=== PATIENT | female | born 1955 | race Caucasian/White ===

== ENCOUNTER → 2019-08-28 14:30 | Outpatient (BNVA) | payer OTHER, SELFPAY | PROVIDERS: Visit Provider Anesthesiology | DX: G89.29 Other chronic pain (principal); M25.551 Pain in right hip; M25.552 Pain in left hip; M54.2 Cervicalgia; M47.816 Spondylosis without myelopathy or radiculopathy, lumbar region; Z79.891 Long term (current) use of opiate analgesic | CPT/HCPCS: 99214 ==

== ENCOUNTER → 2019-10-21 13:52 | Outpatient (BNVA) | payer OTHER, SELFPAY | PROVIDERS: PCP Nurse Practitioner; Visit Provider Nurse Practitioner | DX: G89.29 Other chronic pain (principal); M25.551 Pain in right hip; M25.552 Pain in left hip; M47.816 Spondylosis without myelopathy or radiculopathy, lumbar region; M54.2 Cervicalgia; Z79.891 Long term (current) use of opiate analgesic | CPT/HCPCS: 99213; 99214 ==

== ENCOUNTER → 2019-10-26 14:10 | Outpatient (BNVA) | payer OTHER, SELFPAY | PROVIDERS: PCP Nurse Practitioner; Visit Provider Anesthesiology Pain Medicine | DX: G89.29 Other chronic pain (principal); M47.816 Spondylosis without myelopathy or radiculopathy, lumbar region | CPT/HCPCS: 64635; 64636; 77003; J1030; J2001 ==

== ENCOUNTER → 2019-11-09 09:12 | Outpatient (BNVA) | payer OTHER, SELFPAY | PROVIDERS: PCP Nurse Practitioner; Visit Provider Anesthesiology Pain Medicine | DX: G89.29 Other chronic pain (principal); M47.816 Spondylosis without myelopathy or radiculopathy, lumbar region; Z79.891 Long term (current) use of opiate analgesic | CPT/HCPCS: 64635; 64636; 77003 ==

== ENCOUNTER 2019-12-01 12:46 | Outpatient (CLI) | payer OTHER, SELFPAY ==
--- NOTE | 2019-12-01 13:00 | XR_ITS ---
WS: [id number] LATERAL CERVICAL SPINE: 3 view. Lateral radiographs are performed in upright neutral, flexion and extension to the patient's toleranc e. HISTORY: Neck pain. COMPARISON: 04/21/2014 Straightening of the normal cervical lordosis. 2 mm retrolisthesis of C2 and C3. C2 retrolisthesis in creases to 2.7 mm during extension. No significant instability. No significant change in the retrolis thesis of C3. Moderate disc space narrowing at C4-5, C5-6 and C6-7 with osteophytes. XR/XR cervical spine fl/ex [id number] IMPRESSION: 1. Mild retrolisthesis of C2 and C3 without significant instability during fle xion or extension. 2. Moderate degenerative disc space narrowing and desiccation from C4 through C7.
== END 2019-12-01 12:47 | disposition home or self-care (01) ==
LOC: RADWPI 12:53
PROVIDERS: PCP Nurse Practitioner; Visit Provider Licensed Practical Nurse
DX: M54.2 Cervicalgia (principal)
CPT/HCPCS: 72040

== ENCOUNTER 2019-12-10 09:17 | Outpatient (CLI) | payer OTHER, SELFPAY ==
--- NOTE | 2019-12-10 09:32 | MR_ITS ---
WS: [id number] MRI CERVICAL SPINE NONCONTRAST TECHNIQUE: Sagittal T1, T2 and STIR imaging. Axial T2, gradient, and fiesta imaging. CLINICAL INFORMATION: CERVICALGIA COMPARISON: MRI September 17, 2019 FINDINGS: Straightening of the normal cervical lordosis. Mild disc bulging C4-C6. C2-C3: Small central disc protrusion with slight effacement of ventral thecal sac. Mild facet arthrop athy. Spinal canal and foramen are patent. C3-C4: Small shallow central disc protrusion. Mild facet arthropathy. Spinal canal and foramen are pa tent. C4-C5: Disc osteophyte complex with mild central canal stenosis. Moderate left and no significant rig ht foraminal narrowing. Mild facet arthropathy. Mild central canal stenosis. C5-C6: Disc osteophyte complex with mild central canal stenosis. Moderate left bony foraminal narrowi ng. Right foramen is patent. Mild/moderate facet arthropathy. C6-C7: Small right pericentral protrusion. Mild central canal stenosis. Moderate to severe left and n o significant right foraminal narrowing. C7-T1: Mild left and no significant right foraminal narrowing. Spinal canal is patent Visualized brain stem structures: Normal. Prevertebral soft tissues: Normal. MR/MR cervical spin wo con* [id number] IMPRESSION: 1. Straightening of the normal cervical lordosis. Cord signal is normal. 2. Mild disc osteophyte complexes at C4-C6 with mild central canal stenosis. 3. Moderate left C4-C5 and left C5-C6 bony foraminal narrowing. Moderate to se gilles left C6-C7 bony foraminal narrowing. 4. No significant interval changes since September 17, 2019
== END 2019-12-10 09:18 | disposition home or self-care (01) ==
LOC: RADWPI 09:26
PROVIDERS: PCP Nurse Practitioner; Visit Provider Nurse Practitioner
DX: M54.2 Cervicalgia (principal); M25.78 Osteophyte, vertebrae; M48.02 Spinal stenosis, cervical region
CPT/HCPCS: 72141

== ENCOUNTER 2020-01-19 09:39 | Outpatient (CLI) | payer OTHER, SELFPAY ==
--- NOTE | 2020-01-19 09:54 | MM_ITS ---
WS: [id number] BILATERAL DIGITAL SCREENING MAMMOGRAPHY WITH CAD CLINICAL INFORMATION: SCREEN HISTORY: Screening mammogram. No current complaints. COMPARISON: September 18, 2018 TECHNIQUE: Bilateral CC and MLO views. FINDINGS: The breasts are composed of heterogeneous fibroglandular density tissue, which can limit the detectio n of small underlying mass lesions. No suspicious mass, asymmetry, calcifications, or architectural d istortion. No evidence of malignancy. Punctate calcifications. Punctate clustered calcifications left breast. MM/[id number] IMPRESSION: BI-RADS: 2-Benign FOLLOW UP: 1 Year Follow-up Recommend return to annual screening mammography.
== END 2020-01-19 09:40 | disposition home or self-care (01) ==
LOC: RADSHAW 09:45
PROVIDERS: PCP Nurse Practitioner; Visit Provider Nurse Practitioner
DX: Z12.31 Encounter for screening mammogram for malignant neoplasm of breast (principal)
CPT/HCPCS: 77067

== ENCOUNTER → 2020-01-28 13:31 | Outpatient (BNVA) | payer OTHER, SELFPAY | PROVIDERS: PCP Nurse Practitioner; Visit Provider Anesthesiology | DX: G89.29 Other chronic pain (principal); M50.020 Cervical disc disorder with myelopathy, mid-cervical region, unspecified level; M43.12 Spondylolisthesis, cervical region; M50.90 Cervical disc disorder, unspecified, unspecified cervical region; M47.816 Spondylosis without myelopathy or radiculopathy, lumbar region; Z79.891 Long term (current) use of opiate analgesic | CPT/HCPCS: 99214 ==

== ENCOUNTER → 2020-03-10 08:19 | Outpatient (BNVA) | payer OTHER, SELFPAY | PROVIDERS: PCP Nurse Practitioner; Visit Provider Anesthesiology | DX: M50.020 Cervical disc disorder with myelopathy, mid-cervical region, unspecified level (principal); M50.90 Cervical disc disorder, unspecified, unspecified cervical region; M43.12 Spondylolisthesis, cervical region; Z79.891 Long term (current) use of opiate analgesic | CPT/HCPCS: 62321; J1040 ==

== ENCOUNTER → 2020-03-16 07:51 | Outpatient (BNVA) | payer OTHER, SELFPAY | PROVIDERS: PCP Nurse Practitioner; Visit Provider Anesthesiology | DX: G89.29 Other chronic pain (principal); M50.90 Cervical disc disorder, unspecified, unspecified cervical region; M50.020 Cervical disc disorder with myelopathy, mid-cervical region, unspecified level; M43.12 Spondylolisthesis, cervical region; M47.816 Spondylosis without myelopathy or radiculopathy, lumbar region; Z79.891 Long term (current) use of opiate analgesic | CPT/HCPCS: 99214 ==

== ENCOUNTER → 2020-05-05 09:37 | Outpatient (BNVA) | payer OTHER, SELFPAY | PROVIDERS: PCP Nurse Practitioner; Visit Provider Anesthesiology | DX: G89.29 Other chronic pain (principal); M47.816 Spondylosis without myelopathy or radiculopathy, lumbar region; M50.90 Cervical disc disorder, unspecified, unspecified cervical region; M50.020 Cervical disc disorder with myelopathy, mid-cervical region, unspecified level; M43.12 Spondylolisthesis, cervical region; Z79.891 Long term (current) use of opiate analgesic | CPT/HCPCS: 99213; 99214 ==

== ENCOUNTER → 2020-05-25 13:52 | Outpatient (BNVA) | payer OTHER, SELFPAY | PROVIDERS: PCP Nurse Practitioner; Visit Provider Anesthesiology Pain Medicine | DX: G89.29 Other chronic pain (principal); M47.816 Spondylosis without myelopathy or radiculopathy, lumbar region; M54.5 Low back pain; Z79.891 Long term (current) use of opiate analgesic | CPT/HCPCS: 64635; 64636; J1030 ==

== ENCOUNTER → 2020-06-14 12:35 | Outpatient (BNVA) | payer OTHER, SELFPAY | PROVIDERS: PCP Nurse Practitioner; Visit Provider Anesthesiology Pain Medicine | DX: G89.29 Other chronic pain (principal); M47.816 Spondylosis without myelopathy or radiculopathy, lumbar region; M54.9 Dorsalgia, unspecified; Z79.891 Long term (current) use of opiate analgesic | CPT/HCPCS: 64635; 64636; J1030 ==

== ENCOUNTER → 2020-06-30 12:52 | Outpatient (BNVA) | payer OTHER, SELFPAY | PROVIDERS: PCP Nurse Practitioner; Visit Provider Anesthesiology | DX: G89.29 Other chronic pain (principal); M54.42 Lumbago with sciatica, left side; M47.816 Spondylosis without myelopathy or radiculopathy, lumbar region; M50.90 Cervical disc disorder, unspecified, unspecified cervical region; M50.020 Cervical disc disorder with myelopathy, mid-cervical region, unspecified level; M43.12 Spondylolisthesis, cervical region; Z79.891 Long term (current) use of opiate analgesic | CPT/HCPCS: 99213; 99214 ==

== ENCOUNTER → 2020-09-13 08:15 | Outpatient (BNVA) | payer OTHER, SELFPAY | PROVIDERS: PCP Nurse Practitioner; Visit Provider Anesthesiology | DX: G89.29 Other chronic pain (principal); M47.816 Spondylosis without myelopathy or radiculopathy, lumbar region; M50.90 Cervical disc disorder, unspecified, unspecified cervical region; M50.020 Cervical disc disorder with myelopathy, mid-cervical region, unspecified level; M43.12 Spondylolisthesis, cervical region; Z79.891 Long term (current) use of opiate analgesic | CPT/HCPCS: 99214 ==

== ENCOUNTER → 2020-11-10 08:05 | Outpatient (BNVA) | payer OTHER, SELFPAY | PROVIDERS: PCP Nurse Practitioner; Visit Provider Anesthesiology | DX: G89.29 Other chronic pain (principal); M47.816 Spondylosis without myelopathy or radiculopathy, lumbar region; M50.90 Cervical disc disorder, unspecified, unspecified cervical region; M50.020 Cervical disc disorder with myelopathy, mid-cervical region, unspecified level; M43.12 Spondylolisthesis, cervical region; Z79.891 Long term (current) use of opiate analgesic | CPT/HCPCS: 99214 ==

== ENCOUNTER → 2021-01-04 08:06 | Outpatient (BNVA) | payer OTHER, SELFPAY | PROVIDERS: PCP Nurse Practitioner; Visit Provider Anesthesiology | DX: G89.29 Other chronic pain (principal); M54.2 Cervicalgia; M47.816 Spondylosis without myelopathy or radiculopathy, lumbar region; Z79.891 Long term (current) use of opiate analgesic | CPT/HCPCS: 99213 ==

== ENCOUNTER 2021-02-01 10:03 | Outpatient (CLI) | payer OTHER, SELFPAY ==
--- NOTE | 2021-02-01 10:08 | MM_ITS ---
WS: [id number] Bilateral screening digital mammogram, 02/01/2021 Clinical Data: SCREENING Comparison: 01/19/2020, 09/18/2018, 08/05/2017, 12/29/2014, 06/19/2013, 05/16/2011, 06/01/2009. Findings: The breast parenchymal pattern shows fibroglandular tissue. No spiculated masses or clustered calcifi cations are seen. There are no secondary signs of carcinoma. There are scattered benign ductal calcif ications in both breasts. There are small lymph nodes in both axilla. There are bilateral mole marker s. MM/[id number] Impression: 1. Negative bilateral mammogram unchanged. 2. Recommend annual screening mammograms. BIRADS: 1-Negative FOLLOW UP: 1 Year Follow-up The CAD [employer] was used.
== END 2021-02-01 10:04 | disposition home or self-care (01) ==
LOC: RADSHAW 10:06
PROVIDERS: PCP Nurse Practitioner; Visit Provider Nurse Practitioner
DX: Z12.31 Encounter for screening mammogram for malignant neoplasm of breast (principal)
CPT/HCPCS: 77067

== ENCOUNTER → 2021-03-07 07:49 | Outpatient (BNVA) | payer OTHER, SELFPAY | PROVIDERS: PCP Nurse Practitioner; Visit Provider Anesthesiology | DX: G89.29 Other chronic pain (principal); M43.12 Spondylolisthesis, cervical region; M50.020 Cervical disc disorder with myelopathy, mid-cervical region, unspecified level; M25.551 Pain in right hip; M47.816 Spondylosis without myelopathy or radiculopathy, lumbar region; M50.90 Cervical disc disorder, unspecified, unspecified cervical region; Z87.891 Personal history of nicotine dependence; Z79.891 Long term (current) use of opiate analgesic | CPT/HCPCS: 99214 ==

== ENCOUNTER → 2021-05-02 07:52 | Outpatient (BNVA) | payer OTHER, SELFPAY | PROVIDERS: PCP Nurse Practitioner; Visit Provider Anesthesiology | DX: G89.29 Other chronic pain (principal); M50.90 Cervical disc disorder, unspecified, unspecified cervical region; M50.020 Cervical disc disorder with myelopathy, mid-cervical region, unspecified level; M43.12 Spondylolisthesis, cervical region; M47.816 Spondylosis without myelopathy or radiculopathy, lumbar region; M25.551 Pain in right hip; M25.552 Pain in left hip; Z79.891 Long term (current) use of opiate analgesic; Z87.891 Personal history of nicotine dependence | CPT/HCPCS: 99214 ==

== ENCOUNTER → 2021-05-04 09:27 | Outpatient (BNVA) | payer OTHER, SELFPAY | PROVIDERS: PCP Nurse Practitioner; Visit Provider Surgery | DX: Z20.822 Contact with and (suspected) exposure to COVID-19 (principal); Z11.52 Encounter for screening for COVID-19 | CPT/HCPCS: 87635 ==

== ENCOUNTER 2021-05-10 07:10 | Day surgery (SDC) | payer OTHER, MEDICARE, SELFPAY ==
[2021-05-05 13:14] VITALS: BMI 28.2
--- NOTE | 2021-05-10 07:56 | ANES.PREANE2 ---
Pre-Anesthetic Assessment Pre-Anesthetic Assessment: Height/Weight: Height 1.6 m Weight 79.379 kg Proposed Procedure: Operation Date: 05/10/21 08:45 Proposed Procedures p Colonoscopy 98068 z12.11(Not Applicable) - Kevan Bruce MD Was Beta Louis taken within 24 hours: N/A Was Clonidine taken within 24 hours: N/A Social: Social History: No alcohol and No tobacco Exam: Pre-Anes Outpt Exam: alert, oriented x 3, clear to auscultation bilaterally and regular rate & rhythm Airway: Submandibular: WNL Cervical ROM: WNL MP: 2 Dentition: False Musc/skel: Musc/skel: Lower Back Pain Comments: Chronic pain/opioid Anesthetic Plan: ASA status: 3 Anesthesia: MAC Risk of > 500 ml blood loss (7ml/kg in children): No PFSH Anesthesia PFSH: Medical History Cervical disc disease Cervical disc disorder with myelopathy of mid-cervical region Encounter for long-term use of opiate analgesic PTSD (post-traumatic stress disorder) Spondylolisthesis of cervical region 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 Social History (Updated 05/02/21 @ 08:41 by Jolene Colbert LPN) Smoking and tobacco status: former smoker Second hand smoke exposure: No Alcohol intake: never Adopted: Yes Household members: spouse Marital status: Current occupational status: retired and disabled History of recent travel: No Data Anesthesia Cardiac Studies: No Data to Display
[2021-05-10 08:20] VITALS: BP 140/94; PULSE 78; RESP 18; TEMP 36.3; O2SAT 96
[2021-05-10] MEDS: sodium chloride 0.9% 1,000 ML 30 ML IV (08:26)
--- NOTE | 2021-05-10 08:41 | P.HP_ITS ---
Same Day Surgery H&P Indication for Procedure/HPI DATE OF PROCEDURE: May 10, 2021 CHIEF COMPLAINT/INDICATIONFOR SURGICAL PROCEDURE: I am here for colonoscopy PREOP DIAGNOSIS: Screening colonoscopy PLANNED PROCEDRUE: Operation Date: 05/10/21 08:45 Proposed Procedures p Colonoscopy 05311 z12.11(Not Applicable) - Kevan Bruce MD 03/29/2021 This is a pleasant 65 years old female patient referred to me as she has been tested positive for the fecal immunochemical test, as she is referred today to discuss colonoscopy she does report that she does have some blood with stool every now and then. Denies history of colon cancer and she reports that she has been adopted and she does not know of she has family history of colon cancer. No evidence of weight loss 05/10/2021 Patient comes today for colonoscopy today ROS All systems have been reviewed negative except as per the above or per problem list Medications/Allergies* Home Medications Medication Instructions Recorded Confirmed Type calcitonin (salmon) 200 1 spray INTRANASAL (ALT) ONCE 08/20/19 05/10/21 History unit/actuation nasal spray calcium carbonate-vitamin D3 600 1 cap PO DAILY cap 08/20/19 05/10/21 History mg (1,500 mg)-400 unit capsule gabapentin 100 mg capsule 100 mg PO .eight times a day cap 08/20/19 05/10/21 History omega-3 fatty acids 1,000 mg 1,000 mg PO BID 08/20/19 05/10/21 History capsule synthetic conj estrogens B 0.625 0.625 mg PO DAILY tab 08/20/19 05/10/21 History mg tablet cyclobenzaprine 10 mg tablet 10 mg PO BID PRN tab 08/28/19 05/10/21 History ketoconazole 2 % topical cream 1 applic TOPICAL BID PRN 08/28/19 05/10/21 History prenat.vits,joyce,rac-jral-nyfsb 1 tab PO DAILY 10/26/19 05/10/21 History garlic 1,000 mg capsule 1,000 mg PO DAILY 11/19/19 05/10/21 History turmeric root extract 500 mg 500 mg PO DAILY 11/19/19 05/10/21 History capsule elida (Zingiber officinalis) 500 500 mg PO DAILY 12/15/19 05/10/21 History mg capsule cetirizine 10 mg tablet 10 mg PO DAILY PRN tab 05/05/20 05/10/21 History trazodone 100 mg tablet 100 mg PO DAILY 01/04/21 05/10/21 History Allergies/Adverse Reactions Allergy/AdvReac Type Severity Reaction Status Date / Time No Known Allergies Allergy Unverified 05/10/21 09:00 Current Medications: Generic Name Dose Route Start Last Admin Trade Name Freq PRN Reason Stop Dose Admin Sodium Chloride 1,000 mls @ 30 mls/hr 05/10/21 08:30 05/10/21 08:26 Sodium Chloride 0.9% IV 05/11/21 08:29 30 mls/hr .Q24H LOGAN Administration Pertinent History/Comorbid Conditions* Medical History (Updated 05/08/21 @ 15:02 by Richy Girard MD) Cervical disc disease Cervical disc disorder with myelopathy of mid-cervical region Encounter for long-term use of opiate analgesic PTSD (post-traumatic stress disorder) Spondylolisthesis of cervical region 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 Social History Smoking and tobacco status: former smoker Second hand smoke exposure: No Alcohol intake: never Adopted: Yes Household members: spouse Marital status: Current occupational status: retired and disabled History of recent travel: No Pertinent Exam Findings alert, oriented x 3, clear to auscultation bilaterally, regular rate & rhythm and procedure specific exam findings (Abdominal examination nontender nondistended soft) Recommendations Surgery/Procedure today (Colonoscopy with possible biopsy) Other Plans: Plan of care; After thorough history and physical examination and reviewing the chart, plan to perform screening colonoscopy. I discussed with the patient in details the risks,benefits,alternatives and indications.The risk of aspiration, bleeding, soft tissue injury, perforation of the colon and other potential concomitant complications were explained to the patient in details,also the potential need for Laproscoy/Laparotomy to repair any related complications including but not limited to colectomy and or Closotomy.The patient understood this well and did agree to proceed. Rationale was carefully and clearly discussed with the patient.Appropriate informed consent have been reviewed and signed All questions have been answered and all concerns have been addressed to patient's satisfaction. Verbal and written Instructions were given to the patient for colonoscopy prep Coding Level of Care Code Acute Social Work Lecturer for Ousmane Daugherty
[2021-05-10 09:23] VITALS: BP 140/70; PULSE 68; RESP 18; TEMP 36.4; O2SAT 96
[2021-05-10 09:38] VITALS: BP 110/73; PULSE 69; RESP 18; O2SAT 96
--- NOTE | 2021-05-10 14:12 | ANE.PACU2 ---
Inpatient post-anesthesia follow up: Airway intact: Yes Vital signs: Temperature 97.5 F Pulse Rate 69 Respiratory Rate 18 Blood Pressure 110/73 Pulse Oximetry 96 Oxygen Delivery Me thod Room Air Oxygen Flow Rate 3 Fraction of Inspir ed Oxygen Hydration adequate: Yes Nausea and vomiting: No Pain level: 1 Mental status: Baseline
== END 2021-05-10 10:00 | disposition home or self-care (01) ==
PROVIDERS: PCP Nurse Practitioner; Visit Provider Surgery
PROC: 0DJD8ZZ Inspection of Lower Intestinal Tract, Via Natural or Artificial Opening Endoscopic (ICD-10-PCS; CPT 45378; principal; 2021-05-10 08:45)
DX: Z12.11 Encounter for screening for malignant neoplasm of colon (principal); D12.8 Benign neoplasm of rectum; Z87.891 Personal history of nicotine dependence
CPT/HCPCS: 45380; 88305; 96360; J2704; J7030

== ENCOUNTER 2021-06-13 14:00 | Inpatient (IN) | payer OTHER, SELFPAY ==
[2021-06-13 14:12] VITALS: BP 92/64; PULSE 98; RESP 18; TEMP 37.4; O2SAT 94; BMI 28.8
--- NOTE | 2021-06-13 14:20 | ECG_ITS ---
[facility] Test Date: 2021-06-13 Pat Name: Guadalupe Garrett Department: Room: Gender: Female Customer Marketing Intern: : 1955 Requested By: Dmitry Whalen Order Number: [id number] Reading MD: RADHA BRADFORD Measurements Intervals [place] Rate: 94 P: 63 UT: 144 QRS: 79 QRSD: 93 T: 61 QT: 349 QTc: 437 Interpretive Statements SINUS RHYTHM INDETERMINATE AXIS INCOMPLETE RIGHT BUNDLE BRANCH BLOCK [90+ ms QRS DURATION, TERMINAL R IN V1/V2, 40+ ms S IN I/aVL/V4/V5/V6] No previous ECG available for comparison Electronically Signed On 06-13-2021 22:57:40 CDT by RADHA BRADFORD [id number]
[2021-06-13 15:03] LABS: Basophils % 0.2 %; Eosinophils # 0.2 10^3/uL (0.0-0.8); Eosinophils % 3.7 %; Hemoglobin 15.3 g/dL (11.5-15.3); Lymphocytes # 0.6 10^3/uL (0.8-4.8); Lymphocytes % 9.9 %; Mean Corpuscular HGB Conc 34.8 g/dL (30.0-36.0); Mean Corpuscular Hemoglobin 29.3 pg (28.0-34.0); Mean Corpuscular Volume 84.1 fl (81-99); Mean Platelet Volume 10.1 fL (7.4-10.4); Monocytes # 0.2 10^3/uL (0.2-0.9); Monocytes % 3.1 %; Neutrophils # 4.62 10^3/uL (1.8-7.7); Neutrophils % 80.3 %; Nucleated Red Blood Cells % 0 %; Platelet Count 165 10^3/cmm (130-400); Red Blood Count 5.23 10^6/uL (4.1-5.3); Red Cell Distribution Width 13.2 % (12.1-15.1); White Blood Count 5.8 10^3/uL (4.0-10.0)
[2021-06-13 15:25] LABS: Troponin T (5th) Once 10 ng/L (0-10)
[2021-06-13 16:16] LABS: Alanine Aminotransferase 144 U/L (0-33); Albumin Level 3.7 g/dL (3.5-5.2); Alkaline Phosphatase 61 IU/L (35-105); Anion Gap 21.2 (5-19); Aspartate Amino Transferase 370 U/L (0-32); Blood Urea Nitrogen 22 mg/dL (8-23); Calcium 8.3 mg/dL (8.5-10.5); Carbon Dioxide 24 mmol/L (22-29); Chloride 87 mmol/L (98-107); Globulin 2.9 g/dL (1.3-4.6); Glucose 87 mg/dL (65-115); Lipase 47 U/L (13-60); Osmolality Calculated 271 mOsm/kg (285-295); Potassium 3.2 mmol/L (3.5-5.1); Sodium 129 mmol/L (136-145); Total Bilirubin 0.4 mg/dL (0.15-1.2); Total Protein 6.6 g/dL (6.6-8.7)
[2021-06-13 17:01] VITALS: BP 128/72; PULSE 86; RESP 17; O2SAT 94
--- NOTE | 2021-06-13 17:16 | CTR_ITS ---
PROCEDURE INFORMATION: Exam: CT Head Without Contrast Exam date and time: 06/13/2021 5:16 PM Age: 66 years old Clinical indication: Weakness, extremity; Bilateral; Additional info: Weakness legs TECHNIQUE: Imaging protocol: Computed tomography of the head without contrast. Sagittal and coronal reformatted images were created and reviewed. Radiation optimization: All CT scans at this facility use at least one of these dose optimization techniques: automated exposure control; mA and/or kV adjustment per patient size (includes targeted exams where dose is matched to clinical indication); or iterative reconstruction. COMPARISON: No relevant prior studies available. RADIATION DOSE METRICS: Total DLP (mGy-cm): 835.77 FINDINGS: Brain: No acute intracranial hemorrhage. No acute infarct. No intra-axial or extra-axial masses. Del[place]-white matter differentiation is preserved. No cerebral edema. No extra-axial fluid collections. No midline shift. No evidence for Chiari 1 malformation. Cerebral ventricles: No hydrocephalus. Paranasal sinuses: Mild mucoperiosteal thickening in the posterior right ethmoid sinuses. Other visualized paranasal sinuses are clear. Mastoid air cells: Visualized mastoid air cells are clear. Orbital cavity: No acute abnormality in the visualized orbits. Vasculature: Atherosclerotic changes in the visualized arteries. Bones/joints: No acute fracture. Soft tissues: The extracranial soft tissues are unremarkable. CT/CT head wo con* [id number] IMPRESSION: 1. No acute abnormality of the brain. 2. Mild mucoperiosteal thickening in the posterior right ethmoid sinuses. 3. Incidental/nonacute findings are listed in the report. Radiation Dose CTDIVOL = (mGy): DLP = 835.77 (mGy-cm)
--- NOTE | 2021-06-13 17:17 | ED_ITS ---
HPI - Neuro Symptoms/Deficit General: Chief Complaint: Neuro Symptoms/Deficit Stated Complaint: nausea and vomitting Time Seen by Provider: 06/13/21 17:04 History of Present Illness: HPI Narrative: 66-year-old female presents emergency room with complaint of weakness bilateral legs feels like she cannot walk. She denies any dizziness or lightheadedness. States last week she was seen by her primary care doctor and started on Bactrim for a UTI. She not had any chest pain or tightness. Patient is nondiabetic she takes a large number of nutritional supplements. Onset (ago): day(s) Quality: weak Relieving factors: none Exacerbating factors: none On Anticoagulants: No Associated symptoms: Reports weakness; Deny chest pain, cough, diaphoresis, fevers/chills, headache(s), anorexia, malaise, nausea, seizures, short of breath, syncope, tingling, vertigo or vomiting Treatments Prior to Arrival: none Review of Systems Const: Denies: malaise or diaphoresis ENMT: Denies: throat pain, ear or mastoid pain, nasal discharge or nasal congestion Card: Denies: chest pain or syncope Resp: Denies: dyspnea, productive cough or non-productive cough GI: Denies: nausea or vomiting : Denies: flank pain, difficulty voiding, dysuria, urinary frequency or urinary urgency Skin/Breast: Denies: rash or pruritus Neuro: Denies: headache(s) or vertigo PFS ED PFSH: Medical History (Updated 06/14/21 @ 14:53 by Bharath Rosenbaum DO) Cervical disc disease Cervical disc disorder with myelopathy of mid-cervical region Colon polyp Encounter for long-term use of opiate analgesic PTSD (post-traumatic stress disorder) Spondylolisthesis of cervical region 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 Social History (Reviewed 06/14/21 @ 05:50 by CONSTANTINO Delvalle Smoking and tobacco status: former smoker Second hand smoke exposure: No Alcohol intake: never Adopted: Yes Household members: spouse Marital status: Current occupational status: retired and disabled History of recent travel: No NIH stroke score NIHSS: Level Of Consciousness - 1a: 0 Level Of Consciousness Questions - 1b: Both Correct Level Of Consciousness Commands - 1c: Both Correct Best Gaze - 2: Normal Visual Valles - 3: No Visual Loss Facial Palsy - 4: Normal Motor Arm Right - 5: No Drift Motor Arm Left - 5: No Drift Motor Leg Right - 6: No Drift Motor Leg Left - 6: No Drift Limb Ataxia - 7: Absent Sensory - 8: Normal Best Language - 9: No Aphasia Dysarthia - 10: Normal Extinction And Inattention - 11: 0 Score: Total Score: 0 Physical Exam Const: COMMON NORMALS: no acute distress GENERAL APPEARANCE: cooperative and comfortable ORIENTATION/CONSCIOUSNESS: Yes awake, Yes oriented to person, Yes oriented to place and Yes oriented to time HENMT: COMMON NORMALS: normocephalic, atraumatic and hearing grossly normal bilaterally HEAD & SCALP: normocephalic and atraumatic Eye: COMMON NORMALS: Equal, round and reactive pupils present, EOMs intact bilaterally, conjunctivae normal and no scleral icterus CONJUNCTIVA: Yes conjunctivae normal PUPIL: Yes Equal, round and reactive pupils present Neck/C-Spine: COMMON NORMALS: full ROM, no lymphadenopathy, supple and no JVD Lymph: LYMPHATIC: no lymphadenopathy noted and no lymphedema noted Resp: COMMON NORMALS: normal respiratory effort, No retractions, No use of accessory muscles and clear to auscultation bilaterally AUSCULTATION: clear to auscultation bilaterally Cardio: COMMON NORMALS: no JVD, regular rate, regular rhythm and No murmurs present (Cardio) RATE: regular rate RHYTHM: regular rhythm GI: COMMON NORMALS: Soft to palpation and No hepatosplenomegaly present AUSCULTATION: Yes normoactive bowel sounds PALPATION: Yes Soft to palpation, No Tenderness to palpation present (GI), No Guarding due to palpation present (GI) and Yes No hepatosplenomegaly present Extremity: COMMON NORMALS: normal to inspection, capillary refill normal, no clubbing, cyanosis or edema, no calf tenderness and no pedal edema Neuro: SENSORIUM/ORIENTATION: Yes oriented to person, Yes oriented to place and Yes oriented to time COORDINATION/BALANCE: [id number]-md-[id number] test normal DEEP TENDON REFLEXES: Right patellar reflex intensity grade: 0 and Left patellar reflex intensity grade: 0 PLANTAR REFLEX: downgoing: bilateral COORDINATION: irct-sk-[id number] test normal Skin: COMMON NORMALS: no rashes or lesions noted GENERAL SKIN EXAM: no rashes or lesions noted Course Vital Signs: Vital signs: Vital Signs Temperature 98.3 F 06/14/21 11:37 Pulse Rate 80 06/14/21 11:37 Respiratory Rate 17 06/14/21 11:37 Blood Pressure 103/65 06/14/21 11:37 Pulse Oximetry 97 06/14/21 11:37 MDM - Neuro Symptoms/Deficit MDM Narrative: Medical decision making narrative: We are going to discharge patient we went to have her walk she performed extremely poorly even with the assist of 1 she required the wall for any ambulation ambulated about 10 feet from the door of her exam room and had to lean against the wall to turn. She is significantly hyponatremic. Additionally she did have a mild UTI. Concerned about the proximal weakness and the ataxia that she has. We will go ahead and admit her. Discussed with the hospitalist. Lab Data: Labs: Lab Results 06/13/21 06/13/21 06/13/21 14:59 14:59 14:59 WBC 5.8 10^3/uL 10^3/ uL (4.0-10.0) RBC 5.23 10^6/uL 10^6 /uL (4.1-5.3) Hgb 15.3 g/dL g/dL (11.5-15.3) Hct 44.0 % % (37.0-47.0) MCV 84.1 fl fl (81-99) MCH 29.3 pg pg (28.0-34.0) MCHC 34.8 g/dL g/dL (30.0-36.0) RDW 13.2 % % (12.1-15.1) Plt Count 165 10^3/cmm 10^3 /cmm (130-400) MPV 10.1 fL fL (7.4-10.4) Neut % (Auto) 80.3 % % Lymph % (Auto) 9.9 % % [place] % (Auto) 3.1 % % Eos % (Auto) 3.7 % % Baso % (Auto) 0.2 % % Neut # (Auto) 4.62 10^3/uL 10^3 /uL (1.8-7.7) Lymph # (Auto) 0.6 10^3/uL L 10^ 3/uL (0.8-4.8) [place] # (Auto) 0.2 10^3/uL 10^3/ uL (0.2-0.9) Eos # (Auto) 0.2 10^3/uL 10^3/ uL (0.0-0.8) Baso # (Auto) 0.0 10^3/uL 10^3/ uL (0.0-0.1) Nucleated RBC % (a uto) 0 % % Nucleated RBCs # 0.0 /100WBC /100W BC Sodium 129 mmol/L L mmol /L (136-145) Potassium 3.2 mmol/L L mmol /L (3.5-5.1) Chloride 87 mmol/L L mmol/ L (98-107) Carbon Dioxide 24 mmol/L mmol/L (22-29) Anion Gap 21.2 H (5-19) BUN 22 mg/dL mg/dL (8-23) Creatinine 1.3 mg/dL H mg/dL (0.5-0.9) GFR Calculation 41.0 mL/min L mL/ min (90-130) Glucose 87 mg/dL mg/dL (65-115) Calculated Osmolal ity 271 mOsm/kg L mOs m/kg (285-295) Calcium 8.3 mg/dL L mg/dL (8.5-10.5) Total Bilirubin 0.4 mg/dL mg/dL (0.15-1.2) AST 370 U/L H U/L (0-32) ALT 144 U/L H U/L (0-33) Alkaline Phosphata se 61 IU/L IU/L (35-105) Troponin T Gen 5 n g/L 10 ng/L ng/L (0-10) Total Protein 6.6 g/dL g/dL (6.6-8.7) Albumin 3.7 g/dL g/dL (3.5-5.2) Globulin 2.9 g/dL g/dL (1.3-4.6) Lipase 47 U/L U/L (13-60) Urine Color Urine Appearance Urine pH Ur Specific Gravit y Urine Protein Urine Glucose (UA) Urine Ketones Urine Blood Urine Nitrate Urine Bilirubin Urine Urobilinogen Ur Leukocyte Leidy ase Urine RBC Urine WBC Ur Squamous Epith Cells Amorphous Sediment Urine Bacteria Hyaline Casts Coarse Granular Ca sts Urine Mucus Ur Random Sodium Ur Random Potassiu m Ur Random Chloride 06/13/21 06/13/21 18:00 18:00 WBC RBC Hgb Hct MCV MCH MCHC RDW Plt Count MPV Neut % (Auto) Lymph % (Auto) [place] % (Auto) Eos % (Auto) Baso % (Auto) Neut # (Auto) Lymph # (Auto) [place] # (Auto) Eos # (Auto) Baso # (Auto) Nucleated RBC % (a uto) Nucleated RBCs # Sodium Potassium Chloride Carbon Dioxide Anion Gap BUN Creatinine GFR Calculation Glucose Calculated Osmolal ity Calcium Total Bilirubin AST ALT Alkaline Phosphata se Troponin T Gen 5 n g/L Total Protein Albumin Globulin Lipase Urine Color Yellow (Yellow) Urine Appearance Hazy A (CLEAR) Urine pH 5 (5-7) Ur Specific Gravit y 1.020 (1.005-1.030) Urine Protein Trace (Negative) Urine Glucose (UA) Norm (Normal) Urine Ketones 1+ H (Negative) Urine Blood 3+ H (Negative) Urine Nitrate Negative (Negative) Urine Bilirubin 1+ H (Negative) Urine Urobilinogen 1 mg/dL H mg/dL (Negative) Ur Leukocyte Leidy ase Negative (Negative) Urine RBC 0-4 /hpf H /hpf (0-2) Urine WBC 0-4 /hpf H /hpf (0-5) Ur Squamous Epith Cells 0-4 /hpf H /hpf (0-5) Amorphous Sediment Trace /hpf /hpf Urine Bacteria 1+ /hpf H /hpf (NONE) Hyaline Casts 0-4 /lpf H /lpf Coarse Granular Ca sts 0-4 /lpf H /lpf Urine Mucus 2+ /hpf /hpf Ur Random Sodium 25 mmol/L mmol/L Ur Random Potassiu m 32 mmol/L mmol/L Ur Random Chloride 11 mmol/L mmol/L Discharge Plan Discharge Patient Disposition: Home Clinical Impression: Weakness, Elevated transaminase level, UTI (urinary tract infection), Hyponatremia Condition: Stable Discharge Orders: Discharge ED (Routine); Ordered 06/13/21 Ordered By: Bharath L Horstman Discharge Diet: Clear Liquid Discharge Activity: Resume usual activity Coding Level of Care Code ED Visitor Services Assistant for Chg Fwd Exam Comprehensive
[2021-06-13 18:04] VITALS: BP 141/81; PULSE 99; RESP 18; O2SAT 98
[2021-06-13 18:57] LABS: Add Urine Microscopic? YES; Bilirubin Urine 1+ (Negative); Blood Urine 3+ (Negative); Glucose Urine UA Norm (Normal); Ketones Urine 1+ (Negative); Leukocyte Esterase Urine Negative (Negative); Nitrate Urine Negative (Negative); Protein Urine Trace (Negative); Urine Appearance Hazy (CLEAR); Urine Color Yellow (Yellow); Urobilinogen Urine 1 mg/dL (Negative); pH Urine 5 (5-7)
[2021-06-13 18:58] LABS: Add Urine Culture? No; Amorphous Sediment Urine TRACE /hpf; Bacteria Urine 1+ /hpf; Coarse Granular Casts Urine 0-4 /lpf; Hyaline Casts Urine 0-4 /lpf; Mucus Urine 2+ /hpf; RBC Urine 0-4 /hpf (0-2); Squamous Epithelial Cell Urine 0-4 /hpf (0-5); WBC Urine 0-4 /hpf (0-5)
[2021-06-13 19:52] VITALS: BMI 27.4
[2021-06-13] MEDS: sodium chloride 0.9% 1,000 ML 999 ML IV (19:58)
[2021-06-13 20:39] VITALS: BP 132/69; PULSE 90; RESP 18; TEMP 36.6; O2SAT 97
[2021-06-13] MEDS: sodium chloride 0.9% 1,000 ML 150 ML IV (21:09)
[2021-06-14] VITALS (7 sets, daily range): BP systolic 94–124; BP diastolic 59–67; PULSE 80–87; RESP 16–18; TEMP 36.6–38.4; O2SAT 90–97
--- NOTE | 2021-06-14 01:18 | XRR_ITS ---
PROCEDURE INFORMATION: Exam: XR Chest Exam date and time: 06/14/2021 1:18 AM Age: 66 years old Clinical indication: Fever TECHNIQUE: Imaging protocol: XR of the chest. Views: 1 view. COMPARISON: CR Chest 2 views* [id number] 06/19/2016 6:19 PM FINDINGS: Lungs: Unremarkable. No consolidation. Pleural spaces: Unremarkable. No pleural effusion. No pneumothorax. Heart/Mediastinum: Unremarkable. No cardiomegaly. Bones/joints: Unremarkable. XR/XR chest 1V portable [id number] IMPRESSION: No acute disease. Radiation Dose CTDIVOL = (mGy): DLP = (mGy-cm)
--- NOTE | 2021-06-14 01:32 | CTR_ITS ---
PROCEDURE INFORMATION: Exam: CT Abdomen And Pelvis Without Contrast Exam date and time: 06/14/2021 1:32 AM Age: 66 years old Clinical indication: Prior surgery; Surgery type: Hysterectomy. Appy; Patient HX: Hematuria. Elevated creatinine. ; Additional info: Evalute for obstruction/hydronephrosis TECHNIQUE: Imaging protocol: Computed tomography of the abdomen and pelvis without contrast. Radiation optimization: All CT scans at this facility use at least one of these dose optimization techniques: automated exposure control; mA and/or kV adjustment per patient size (includes targeted exams where dose is matched to clinical indication); or iterative reconstruction. COMPARISON: CR Pelvis AP 1 or 2 views* [id number] 06/19/2016 6:24 PM RADIATION DOSE METRICS: Total DLP (mGy-cm): 1327.31 FINDINGS: Lungs: The lung bases are clear. No effusion Liver: There is fatty infiltration of the liver. Gallbladder and bile ducts: No wall thickening, pericholecystic fluid or stones. Pancreas: Normal. No ductal dilation. Spleen: Normal. No splenomegaly. Adrenal glands: Normal. No mass. Kidneys and ureters: 4 mm nonobstructing left renal pelvis stone. Stomach and bowel: Unremarkable. No obstruction. No mucosal thickening. Appendix: Appendix has been removed. Intraperitoneal space: Unremarkable. No free air. No significant fluid collection. Vasculature: There is mild atherosclerotic disease. Lymph nodes: Unremarkable. No enlarged lymph nodes. Urinary bladder: Unremarkable as visualized. Reproductive: There has been a hysterectomy. Bones/joints: Severe intervertebral disc space narrowing at L4-L5 Soft tissues: Unremarkable. Other findings: Complex septated cystic structure in the pelvis which measures approximately 9.9 x 9.[address]/CT kidney stone [id number] IMPRESSION: 1. Complex septated adnexal cystic structure which measures approximately 9.9 x 9.4 by 7.6 cm. Further evaluation with prompt non-emergent ultrasound or prompt non-emergent MRI is recommended to characterize. (Reference: Camilo) 2. Fatty infiltration of the liver. 3. 4 mm nonobstructing left renal pelvis stone. REFERENCES: Camilo et al. Management of Incidental Adnexal Findings on CT and MRI: A White Paper of the ACR Incidental Findings Committee, J Am Meagan Radiol. 2019;17(2):248-254. Radiation Dose CTDIVOL = (mGy): DLP = 1327.31 (mGy-cm)
--- NOTE | 2021-06-14 01:33 | PM.HP ---
Providers/Chief Complaint Admitting Physician: Casper Mayes MD Primary Care Provider: PA Sahu Chief Complaint: Nausea, vomiting, trouble walking, rash History of Present Illness Guadalupe Garrett is a 66 year old female that presented to the emergency room today with chief complaint of increasing generalized weakness over the past week. Patient states that she was diagnosed with an atypical UTI by her primary care provider at [place] about a week ago and has been on Bactrim twice a day. However over the past week she has continued to experience increased generalized weakness, low-grade fever, has had difficulty walking. At the baseline she states she is independent in ambulation, however has felt more unsteady on her feet over the past week. At the time of my assessment patient is alert and awake, however is slow to respond to questions. I am uncertain if this is her baseline. She has also maculopapular rash noted over bilateral arms face and upper chest which she states appeared since she started Bactrim. She denies any dysuria at this current time. She complains of some abdominal discomfort particularly in the lower abdomen.Nausea+, no vomiting. Denies diarrhea or constipation. Labs today are notable for hyponatremia with sodium of 129, hypokalemia potassium 3.2, elevated AST and ALT 300 and 100 range respectively with normal alkaline phosphatase and T bili. There is no leukocytosis. Creatinine at 1.3, unknown last baseline. UA is noted to be hazy, with 0-4 WBCs, 1+ bacteria, negative nitrate and leukoesterase. She is immunized with 2 dose borderline mRNA vaccine series for COVID-19. Rapid Covid antigen is negative. Review of Systems General: Reports: 10 or more systems reviewed and unremarkable except in HPI and below Const: Denies: fever(s), chills or body aches Eyes: Denies: change in vision, blurry vision or photophobia ENMT: Reports: hoarseness; Denies: throat pain, enlarged tonsils, odynophagia or nasal congestion Card: Denies: chest pain, palpitations, irregular heart rhythm, edema, swelling of feet/ankles, lightheadedness, pre-syncope, dyspnea on exertion or orthopnea Resp: Denies: dyspnea, productive cough, non-productive cough, wheezing, stridor, pain on inspiration, change in phlegm color, hemoptysis or chest congestion GI: Denies: abdominal pain, nausea, vomiting, hematemesis, coffee ground emesis, dysphagia, heartburn, diarrhea, constipation, GI cramping, change in stool character, hematochezia or melena : Denies: flank pain, difficulty voiding, dysuria, urinary frequency, urinary urgency, urinary hesitancy or hematuria Musc: Denies: neck pain, back pain, extremity pain, joint swelling, joint warmth or deformity Neuro: Denies: headache(s), numbness in extremities, weakness in extremities, sensory changes, difficulty walking, frequent falls, dizziness, vertigo, behavioral changes, Slurred speech present or seizure-like activity Psych: Denies: anxiety, depression, suicidal ideation or homicidal ideation Endo: Denies: polyuria, polydipsia, tired all the time, cold intolerance or hot flashes Prudencio/Lymph: Denies: easy bruising or easy bleeding Medications/Allergies Home Medications Medication Instructions Recorded Confirmed Last Taken Type calcitonin (salmon) 200 1 spray INTRANASAL (ALT) ONCE 08/20/19 06/13/21 06/12/21 History unit/actuation nasal spray calcium carbonate-vitamin D3 600 1 cap PO DAILY cap 08/20/19 06/13/21 06/13/21 History mg (1,500 mg)-400 unit capsule gabapentin 100 mg capsule 100 mg PO .eight times a day cap 08/20/19 06/13/21 06/13/21 History omega-3 fatty acids 1,000 mg 1,000 mg PO BID 08/20/19 06/13/21 06/13/21 History capsule synthetic conj estrogens B 0.625 0.625 mg PO DAILY tab 08/20/19 06/13/21 06/13/21 History mg tablet cyclobenzaprine 10 mg tablet 10 mg PO BID PRN tab 08/28/19 06/13/21 Unknown History ketoconazole 2 % topical cream 1 applic TOPICAL BID PRN 08/28/19 06/13/21 05/09/21 History prenat.vits,joyce,[id number] 1 tab PO DAILY 10/26/19 06/13/21 06/13/21 History garlic 1,000 mg capsule 1,000 mg PO DAILY 11/19/19 06/13/21 05/09/21 History turmeric root extract 500 mg 500 mg PO DAILY 11/19/19 06/13/21 06/13/21 History capsule elida (Zingiber officinalis) 500 500 mg PO DAILY 12/15/19 06/13/21 06/13/21 History mg capsule cetirizine 10 mg tablet 10 mg PO DAILY PRN tab 05/05/20 06/13/21 06/13/21 History trazodone 100 mg tablet 100 mg PO DAILY 01/04/21 06/13/21 06/13/21 History hydrocodone 5 mg-acetaminophen 325 1 tab PO BID PRN 30 Days #60 tab 05/02/21 06/13/21 06/13/21 Rx mg tablet Allergies Allergy/AdvReac Type Severity Reaction Status Date / Time Sulfa (Sulfonamide Allergy ALGY-Rash Verified 06/13/21 20:47 Antibiotics) PFSH Acute PFSH: Medical History (Updated 06/14/21 @ 05:53 by Ratna Vidal MD) Cervical disc disease Cervical disc disorder with myelopathy of mid-cervical region Colon polyp Encounter for long-term use of opiate analgesic PTSD (post-traumatic stress disorder) Spondylolisthesis of cervical region 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 Social History Smoking and tobacco status: former smoker Second hand smoke exposure: No Alcohol intake: never Adopted: Yes Household members: spouse Marital status: Current occupational status: retired and disabled History of recent travel: No Vitals/I&O/Wt Last Vital Signs Temp 98.1 F 06/14/21 00:00 Pulse 86 06/14/21 00:00 Resp 18 06/14/21 00:00 BP 124/59 06/14/21 00:00 Pulse Ox 95 06/14/21 00:00 06/13/21 06/13/21 06/14/21 14:59 22:59 06:59 Intake Total 1000 / 1000 Balance 1000 / 1000 Weight last 48 hrs Weight 77.111 kg Weight 81.193 kg Physical Exam Narrative: EXAM NARRATIVE: General: No acute distress, AO x3 HEENT: PERRLA, pupils bilaterally equal and reactive, pallors not present Chest: Normal vesicular breath sounds, no added sounds, equal good air entry bilaterally CVS: S1-S2 regular, no murmurs, no tachycardia, no gallops, no rubs Abdomen: Soft, nontender, no organomegaly, bowel sounds present Neuro: No focal deficits, no facial deformity, AO x3, power 5/5 in all limbs Extremities: Healthy surgical dressing present on the right hip, mild tenderness, soft no erythema. Data : 06/13/21 14:59 06/14/21 04:30 A&P Assessment and plan (1) UTI (urinary tract infection): Status: Acute (2) Weakness: Status: Acute (3) Elevated transaminase level: Status: Acute (4) Hyponatremia: Status: Acute (5) JOHN (acute kidney injury): Status: Acute Additional A&P Information Patient on treatment for urinary tract infection over the past week as outpatient with Bactrim presenting today with increasing generalized weakness, subjective fever, abdominal pain, transaminitis and hyponatremia with JOHN. #UTI, obtain urine culture from primary care physician's office, send additional urine culture today. UA as noted above in HPI, negative for leuk esterase or nitrate, however patient has been on treatment the past week. Patient initially complained to me about having atypical UTI , however unable to clearly state what urinary symptoms she had been experiencing exactly. For now we will empirically start her on ceftriaxone 1 g IV every 24 while awaiting urine culture results. Given also JOHN with creatinine of 1.3 and abdominal pain, will perform CT of the abdomen to rule out obstructive uropathy. No flank tenderness at this time, however patient complains of discomfort to palpation over the abdomen. #Hyponatremia, low serum osmolality. Check urine lites. May be related to SIADH from Bactrim. Fluid restriction for now. Repeat sodium with morning labs, if no improvement will start p.o. salt tablet supplementation. Patient does not appear to be dehydrated at this time. Discontinue supplemental IV fluids as started in the ER. #Increasing generalized weakness over the past week may be related to deconditioning from acute illnesses. Hyponatremia may additionally be contributing. No gross neuro deficits noted on exam today. Did not perform a gait exam as patient currently lying in bed and requesting to sleep due to late hour. However moves all extremities against gravity and against resistance while laying in bed. Check blood culture, Covid antigen, urine culture. Chest x-ray without gross infiltrates. CT abdomen as ordered above. PT eval. denies any urinary or bowel incontinence or saddle anesthesia. #Transaminitis, check hepatitis serology, tick panel (given also presence of a maculopapular rash), empirically started on ceftriaxone # rash, may be 2/2 Bactrim, reports previous rash with sulfa drugs , check tick panel Attestations Medical Necessity Statement*: anticipate >2 midnight admission for above defined care Coding Level of Care Code Acute Life Consultant for [facility] Fwd Diagnoses UTI (urinary tract infection) N39.0 Weakness R53.1 Elevated transaminase level R74.01 Hyponatremia E87.1 JOHN (acute kidney injury) N17.9
[2021-06-14 02:13] LABS: Potassium, Radom Urine 32 mmol/L; Urine Random Sodium 25 mmol/L
[2021-06-14 02:14] LABS: Urine Random Chloride 11 mmol/L
[2021-06-14 02:41] LABS: SARS Covid-2 Antigen Negative (Negative)
[2021-06-14] MEDS: cefTRIAXone 1,000 MG in sodium chloride 0.9% (plus) 50 ML 100 MG IV (02:41)
[2021-06-14 05:15] LABS: Basophils % 0.2 %; Eosinophils # 0.2 10^3/uL (0.0-0.8); Eosinophils % 3.8 %; Hematocrit 38.4 % (37.0-47.0); Lymphocytes # 0.9 10^3/uL (0.8-4.8); Mean Corpuscular HGB Conc 33.9 g/dL (30.0-36.0); Mean Corpuscular Hemoglobin 29.1 pg (28.0-34.0); Mean Corpuscular Volume 85.9 fl (81-99); Mean Platelet Volume 10.4 fL (7.4-10.4); Monocytes # 0.1 10^3/uL (0.2-0.9); Monocytes % 3.1 %; Neutrophils # 2.98 10^3/uL (1.8-7.7); Neutrophils % 71.2 %; Nucleated Red Blood Cells % 0 %; Platelet Count 133 10^3/cmm (130-400); Red Blood Count 4.47 10^6/uL (4.1-5.3); Red Cell Distribution Width 13.3 % (12.1-15.1); White Blood Count 4.2 10^3/uL (4.0-10.0)
[2021-06-14 05:31] LABS: Lactic Sepsis W/Reflex 0.9 mmol/L (0.5-2.2)
[2021-06-14 05:38] LABS: Alanine Aminotransferase 116 U/L (0-33); Alkaline Phosphatase 47 IU/L (35-105); Anion Gap 15.2 (5-19); Aspartate Amino Transferase 292 U/L (0-32); Blood Urea Nitrogen 15 mg/dL (8-23); Calcium 7.6 mg/dL (8.5-10.5); Carbon Dioxide 24 mmol/L (22-29); Chloride 92 mmol/L (98-107); Globulin 2.6 g/dL (1.3-4.6); Glomerular Filtration Rate 62.6 mL/min (90-130); Glucose 91 mg/dL (65-115); Osmolality Calculated 266 mOsm/kg (285-295); Potassium 3.2 mmol/L (3.5-5.1); Sodium 128 mmol/L (136-145); Thyroid Stimulating Hormone 0.43 uIU/mL (0.27-4.20); Total Bilirubin 0.3 mg/dL (0.15-1.2); Total Protein 5.6 g/dL (6.6-8.7)
[2021-06-14 05:52] LABS: Hepatitis A Antibody IgM Non-Reactive (Nonreactive); Hepatitis B Core AB, Total Reactive (Nonreactive); Hepatitis B Surface AB 7.5 (11.5-1000); Hepatitis B Surface Antigen Non-Reactive (Nonreactive); Hepatitis C Virus Antibody Non-Reactive (Nonreactive)
[2021-06-14] MEDS: lidocaine 1% 5 ML in potassium chloride premix 100 ML 25 ML IV (06:23)
[2021-06-14] MEDS: nystatin 100,000 unit/mL UDC 5 mL 100000 UNIT PO ×2 (07:46→20:14)
[2021-06-14] MEDS: pantoprazole DR 40 mg Tablet PO (07:47)
[2021-06-14] MEDS: sodium chloride 1 gm Tablet PO ×2 (07:47→16:50)
[2021-06-14] MEDS: HYDROcodone-acetaminophen 5-325 mg Tablet 1 TAB PO ×2 (07:53→21:00)
--- NOTE | 2021-06-14 08:07 | US_ITS ---
WS: [id number] ULTRASOUND PELVIS TECHNIQUE: Transabdominal. CLINICAL INFORMATION: Complex septated cystic structure in the pelvis COMPARISON: CT June 14, 2021 FINDINGS: Complex lobulated cystic mass in the midline pelvis extending to the left adnexa. This jimmy ures approximately 9.8 x 10.5 x 7.4 cm and corresponds to the findings on the recent CT. A few audit practice intern al septations. No internal vascularity. Right adnexa is unremarkable. US/US pelvic complete* [id number] IMPRESSION: 1. Complex lobulated cystic mass in the midline pelvis extending to the left a dnexa measuring 9.8 x 10.5 x 7.4 cm. 2. Differential Considerations include serous or mucinous cystadenoma/carcinom a. Recommend PRIMARY THERAPIST consultation for further evaluation and consideration for rese ction.
[2021-06-14 09:57] LABS: Vitamin B12 835 pg/mL (232-1245)
[2021-06-14] MEDS: sodium chloride 0.9% 1,000 ML 50 ML IV (10:10)
--- NOTE | 2021-06-14 17:11 | P.PN_ITS ---
Subjective Subjective: Interval history: Patient is stating that she has been having recurrent episodes of nausea and vomiting at home since Saturday, she has not taken any antibiotics recently, no fever Vitals/I&O/Wt Last Vital Signs Temp 98.8 F 06/14/21 16:00 Pulse 84 06/14/21 16:00 Resp 16 06/14/21 16:00 BP 102/67 06/14/21 16:00 Pulse Ox 91 06/14/21 16:00 06/14/21 06/14/21 06/14/21 06:59 14:59 22:59 Intake Total 1040 / 2040 300 / 300 Output Total 300 / 300 500 / 500 Balance 740 / 1740 300 / 300 -500 / -200 Weight last 48 hrs Weight 77.111 kg Weight 81.193 kg Physical Exam Narrative: EXAM NARRATIVE: Patient was lying comfortably nonfocal neuro exam She did work with physical therapy no acute respiratory distress saturating well on room air Used a walker, no recurrent falls S1, S2 Nontender soft abdomen Nonfocal neuro exam No joint swelling Multiple macular rash of the upper and lower extremities however seems to be improving Data : 06/14/21 04:30 06/14/21 04:30 Micro: Microbiology 06/14/21 04:30 Blood Culture - Preliminary Blood SPECIMEN COLLECTED A&P Assessment and plan (1) JOHN (acute kidney injury): Status: Acute (2) Hyponatremia: Status: Acute (3) UTI (urinary tract infection): Status: Acute (4) Weakness: Status: Acute (5) Elevated transaminase level: Status: Acute (6) Lichen sclerosus of vulva: Status: Acute (7) Pelvic mass: Status: Acute Additional A&P Information Hyponatremia no recurrence of falls she did work with physical therapy, use walker This morning neuro exam nonfocal Start normal saline We will treat with IV fluids for dehydration, multiple episode of emesis, Bactrim related hyponatremia to be ruled out Pelvic mass: Concern for malignancy, will need outpatient follow-up with SOFTWARE TECHNICIAN UTI: Continue ceftriaxone for now Abnormal transaminases pelvic mass and hyponatremia could be related to und erlying latency she does have history of lichen sclerosis of vulva Full code Regular diet DVT prophylaxis Lovenox Attestations Medical Necessity Statement*: Continue medical management Time Spent in Patient Care: 16 - 35 minutes Coding Level of Care Code Acute Real Estate Account Executive for g Fwd Diagnoses JOHN (acute kidney injury) N17.9 Hyponatremia E87.1 UTI (urinary tract infection) N39.0 Weakness R53.1 Elevated transaminase level R74.01 Lichen sclerosus of vulva N90.4 Pelvic mass R19.00
[2021-06-14] MEDS: potassium chloride ER 20 mEq Tablet 40 MEQ PO (17:38)
[2021-06-14 17:59] LABS: CA 125 17.1 U/mL (0-35)
[2021-06-14] MEDS: trazodone 100 mg Tablet PO ×2 (20:14→20:20)
[2021-06-15] VITALS: BP 100/65; PULSE 78; RESP 18; TEMP 36.7; O2SAT 90
[2021-06-15] MEDS: cefTRIAXone 1,000 MG in sodium chloride 0.9% (plus) 50 ML 100 MG IV (01:11)
[2021-06-15 04:00] VITALS: BP 98/71; PULSE 74; RESP 17; TEMP 36.8; O2SAT 91
[2021-06-15 05:35] LABS: Basophils % 0.3 %; Eosinophils # 0.2 10^3/uL (0.0-0.8); Eosinophils % 5.9 %; Hematocrit 39.3 % (37.0-47.0); Hemoglobin 12.9 g/dL (11.5-15.3); Lymphocytes # 1.2 10^3/uL (0.8-4.8); Lymphocytes % 31.4 %; Mean Corpuscular HGB Conc 32.8 g/dL (30.0-36.0); Mean Corpuscular Hemoglobin 29.1 pg (28.0-34.0); Mean Corpuscular Volume 88.5 fl (81-99); Mean Platelet Volume 10.8 fL (7.4-10.4); Monocytes # 0.1 10^3/uL (0.2-0.9); Monocytes % 3.3 %; Neutrophils # 2.29 10^3/uL (1.8-7.7); Neutrophils % 58.8 %; Nucleated Red Blood Cells % 0 %; Platelet Count 98 10^3/cmm (130-400); Red Blood Count 4.44 10^6/uL (4.1-5.3); Red Cell Distribution Width 14.2 % (12.1-15.1); White Blood Count 3.9 10^3/uL (4.0-10.0)
[2021-06-15 05:58] LABS: Lactic Sepsis W/Reflex 0.9 mmol/L (0.5-2.2)
[2021-06-15 06:07] LABS: Anion Gap 10.5 (5-19); Blood Urea Nitrogen 10 mg/dL (8-23); Calcium 7.9 mg/dL (8.5-10.5); Carbon Dioxide 24 mmol/L (22-29); Chloride 104 mmol/L (98-107); Glucose 116 mg/dL (65-115); Osmolality Calculated 280 mOsm/kg (285-295); Potassium 3.5 mmol/L (3.5-5.1); Sodium 135 mmol/L (136-145); Thyroid Stimulating Hormone 2.88 uIU/mL (0.27-4.20)
[2021-06-15] MEDS: sodium chloride 0.9% 1,000 ML 50 ML IV (06:07)
[2021-06-15 06:52] LABS: Slide Review Slide Review Perform
[2021-06-15 08:00] VITALS: BP 99/63; PULSE 75; RESP 16; TEMP 36.7; O2SAT 92
[2021-06-15] MEDS: nystatin 100,000 unit/mL UDC 5 mL 100000 UNIT PO (08:03)
[2021-06-15] MEDS: HYDROcodone-acetaminophen 5-325 mg Tablet 1 TAB PO (08:04)
[2021-06-15] MEDS: pantoprazole DR 40 mg Tablet PO (08:05)
[2021-06-15] MEDS: sodium chloride 1 gm Tablet PO (09:47)
--- NOTE | 2021-06-15 11:14 | PM.DCS ---
Discharge Providers Date of Admission: 06/13/21 18:28 Date of Discharge: June 15, 2021 Attending Provider at Admission: Casper Mayes MD Attending Provider at Discharge: Casper Mayes MD Primary Care Provider: PA Sahu Diagnoses at Discharge Discharge Diagnosis (1) JOHN (acute kidney injury): Status: Acute (2) Hyponatremia: Status: Acute (3) UTI (urinary tract infection): Status: Acute (4) Weakness: Status: Acute (5) Elevated transaminase level: Status: Acute (6) Lichen sclerosus of vulva: Status: Acute (7) Pelvic mass: Status: Acute Reason for Visit Reason for Visit: Nausea, vomiting, trouble walking, rash Hospital Course Hospital Course HPI by Dr. Vidal History of Present Illness Guadalupe Garrett is a 66 year old female that presented to the emergency room today with chief complaint of increasing generalized weakness over the past week. Patient states that she was diagnosed with an atypical UTI by her primary care provider at [place] about a week ago and has been on Bactrim twice a day. However over the past week she has continued to experience increased generalized weakness, low-grade fever, has had difficulty walking. At the baseline she states she is independent in ambulation, however has felt more unsteady on her feet over the past week. At the time of my assessment patient is alert and awake, however is slow to respond to questions. I am uncertain if this is her baseline. She has also maculopapular rash noted over bilateral arms face and upper chest which she states appeared since she started Bactrim. She denies any dysuria at this current time. She complains of some abdominal discomfort particularly in the lower abdomen.Nausea+, no vomiting. Denies diarrhea or constipation. Labs today are notable for hyponatremia with sodium of 129, hypokalemia potassium 3.2, elevated AST and ALT 300 and 100 range respectively with normal alkaline phosphatase and T bili. There is no leukocytosis. Creatinine at 1.3, unknown last baseline. UA is noted to be hazy, with 0-4 WBCs, 1+ bacteria, negative nitrate and leukoesterase. She is immunized with 2 dose borderline mRNA vaccine series for COVID-19. Rapid Covid antigen is negative Hospital course Patient was admitted for management of hyponatremia, generalized weakness. For her recurrent nausea and vomiting and dehydration she was started on normal saline which improved her hyponatremia. She did work with physical therapist and was deemed stable to be discharged home. No focal neurological signs or symptoms. She does have history of basal cell skin cancer, history of hysterectomy. For her abdominal pain CT abdomen pelvis was requested which showed pelvic mass, pelvic ultrasound requested which showed US/US pelvic complete* [id number] IMPRESSION: 1. Complex lobulated cystic mass in the midline pelvis extending to the left adnexa measuring 9.8 x 10.5 x 7.4 cm. 2. Differential Considerations include serous or mucinous cystadenoma/carcinoma. Recommend RAIL SWITCHMAN consultation for further evaluation and consideration for resection. CT/CT kidney stone [id number] IMPRESSION: 1. Complex septated adnexal cystic structure which measures approximately 9.9 x 9.4 by 7.6 cm. Further evaluation with prompt non-emergent ultrasound or prompt non-emergent MRI is recommended to characterize. (Reference: Camilo) 2. Fatty infiltration of the liver. 3. 4 mm nonobstructing left renal pelvis stone CA-125 antigen 17.1 I did discuss this case with Dr. Girard on-call oil field caser on 06/14 who recommended following up with Dr. Kim at [place], patient was given clear instructions, and referral for follow-up, Of note, outpatient patient was given Bactrim for treatment of UTI, patient is stating that as soon as she took Bactrim she start experiencing hives all over her extremities, she started throwing up, experienced more than 10 episodes of emesis, admitting doctor put her on fluid restriction and consideration of Bactrim induced hyponatremia however her sodium improved with fluid resuscitation. Bactrim induced hyponatremia less likely to be the etiology. She will be discharged on Levaquin 5-day regimen for her UTI. Her blood and urine cultures remained sterile. For her abnormal transaminases, tick panel/viral panel was sent which is pending, I have given her a prescription of CMP for monitoring of AST and ALT outpatient. Bilirubin 0.3, alkaline phosphatase 47, CT abdomen pelvis consistent with fatty infiltration of liver without gallbladder or CBD abnormalities Physical Exam Narrative: EXAM NARRATIVE: Patient was lying comfortably nonfocal neuro exam She did work with physical therapy no acute respiratory distress saturating well on room air Used a walker, no recurrent falls S1, S2 Nontender soft abdomen Nonfocal neuro exam No joint swelling Multiple macular rash of the upper and lower extremities however seems to be improving Left leg basal cell skin cancer Discharge Data Data Completed and Pending: Completed Studies During Hospitalization Category Date Time Status CT head wo con* 7 0450 Stat Cat Scan 06/13/21 17:[address] kidney stone 7 [id number] Routine Cat Scan 06/14/21 01:32 Completed XR chest 1V danyelle ble [id number] Routine Exams 06/14/21 01:18 Completed US pelvic complet e* [id number] Routine Ultrasound 06/14/21 08:07 Completed Pending at discharge Category Date Time Status Blood Culture AM LABS Lab 06/14/21 04:30 Results Osmolality Urine Routine Lab 06/14/21 05:00 Received Tick Panel AM LAB S Lab 06/14/21 04:30 Received Urine Culture Sta t Lab 06/14/21 01:23 Results Labs from last 24 hours 06/15/21 06/15/21 06/15/21 05:20 05:20 05:20 WBC 3.9 L RBC 4.44 Hgb 12.9 Hct 39.3 MCV 88.5 MCH 29.1 MCHC 32.8 RDW 14.2 Plt Count 98 L MPV 10.8 H Neut % (Auto) 58.8 Lymph % (Auto) 31.4 Taliaferro % (Auto) 3.3 Eos % (Auto) 5.9 Baso % (Auto) 0.3 Neut # (Auto) 2.29 Lymph # (Auto) 1.2 Taliaferro # (Auto) 0.1 L Eos # (Auto) 0.2 Baso # (Auto) 0.0 Nucleated RBC % (a uto) 0 Nucleated RBCs # 0.0 Sodium 135 L Potassium 3.5 Chloride 104 Carbon Dioxide 24 Anion Gap 10.5 BUN 10 Creatinine 0.6 GFR Calculation 100.0 Glucose 116 H Calculated Osmolal ity 280 L Lactic Acid 0.9 Calcium 7.9 L CA 125 Antigen TSH 2.88 06/14/21 04:30 WBC RBC Hgb Hct MCV MCH MCHC RDW Plt Count MPV Neut % (Auto) Lymph % (Auto) Taliaferro % (Auto) Eos % (Auto) Baso % (Auto) Neut # (Auto) Lymph # (Auto) Taliaferro # (Auto) Eos # (Auto) Baso # (Auto) Nucleated RBC % (a uto) Nucleated RBCs # Sodium Potassium Chloride Carbon Dioxide Anion Gap BUN Creatinine GFR Calculation Glucose Calculated Osmolal ity Lactic Acid Calcium CA 125 Antigen 17.1 TSH Vitals: Last Vital Signs Temp 98.1 F 06/15/21 08:00 Pulse 75 06/15/21 08:00 Resp 16 06/15/21 08:00 BP 99/63 06/15/21 08:00 Pulse Ox 92 06/15/21 08:00 Discharge Plan Discharge Patient Disposition: Home Condition: Stable Prescriptions: New levofloxacin 750 mg tablet 750 mg PO DAILY 5 Days Qty: 5 RF: 0 Continued cetirizine 10 mg tablet 10 mg PO DAILY PRN (Reason: Allergy Symptoms) RF: 0 calcitonin (salmon) 200 unit/actuation spray,non-aerosol 1 spray intranasal (ALT) ONCE RF: 0 calcium carbonate-vitamin D3 600 mg(1,500mg) -400 unit capsule 1 cap PO DAILY RF: 0 gabapentin 100 mg capsule 100 mg PO .eight times a day RF: 0 omega-3 fatty acids [Fish Oil Concentrate] 1,000 mg capsule 1,000 mg PO BID RF: 0 ketoconazole 2 % cream 1 applic TOPICAL BID PRN (Reason: Pain) RF: 0 cyclobenzaprine 10 mg tablet 10 mg PO BID PRN (Reason: Muscle Spasm) RF: 0 garlic 1,000 mg capsule 1,000 mg PO DAILY RF: 0 Hold Instructions: Resume on 05/13/21. turmeric root extract 500 mg capsule 500 mg PO DAILY RF: 0 elida (Zingiber officinalis) 500 mg capsule 500 mg PO DAILY RF: 0 trazodone 100 mg tablet 100 mg PO DAILY RF: 0 hydrocodone-acetaminophen 5-325 mg tablet 1 tab PO BID PRN (Reason: pain) 30 Days Qty: 60 RF: 0 Discontinued synthetic conj estrogens B 0.625 mg tablet 0.625 mg PO DAILY RF: 0 prenat.vits,joyce,[id number] Tablet 1 tab PO DAILY RF: 0 Discharge Orders: Discharge Order (Routine); Ordered 06/15/21 Ordered By: Casper Mayes Other Ambulatory Orders: Comprehensive Metabolic Panel (Routine) Timeframe: 2 Days Facility: [facility] - Location: Lab - Main Lab Ordered By: Casper Mayes Referrals: Herb Kim MD [Referring] - 1 week (Complex lobulated cystic mass in the midline pelvis extending to the left adnexa measuring 9.8 x 10.5 x 7.4 cm. fax reports plz) Ledy Dillard FNP [Primary Care Provider] - 1-3 days Discharge Diet: Clear Liquid Discharge Activity: Resume usual activity Patient Instructions: Opioid Safety Activity Restrictions/Additional Instructions: Follow-up on elevated liver enzymes with your primary care doctor. Follow-up with Dr. Kim at [place], you have a pelvic mass which needs to be evaluated to rule out cancer Discharge Attestations Time Spent in Discharge Care*: less than 30 min Quality Metrics Clinical Quality Measures During this hospital stay, did patient experience: None Coding Level of Care Code Acute Chg FW DC note Diagnoses JOHN (acute kidney injury) N17.9 Hyponatremia E87.1 UTI (urinary tract infection) N39.0 Weakness R53.1 Elevated transaminase level R74.01 Lichen sclerosus of vulva N90.4 Pelvic mass R19.00
[2021-06-15 12:00] VITALS: BP 99/63; PULSE 75; RESP 16; TEMP 36.7; O2SAT 92
[2021-06-15 13:38] VITALS: BP 99/63; PULSE 75; RESP 16; TEMP 36.7; O2SAT 92
[2021-06-15 14:18] LABS: Lyme AB Screen <0.90 index
[2021-06-15 14:48] LABS: Osmolality Urine 396 mOsm/kg (50-1200)
--- NOTE | 2021-06-15 14:57 | PC.NURSE ---
Dr. Kim's clinic called back after referral was received and requested the imaging results be sent to their clinic. I spoke with Radiology and they will be sharing these with their clinic.
[2021-06-19 17:14] LABS: E. Chaffeensis AB IGG <1:64; E. Chaffeensis AB IGM <1:20
[2021-06-20 16:57] LABS: RMSF IGG NOT DETECTED; RMSF IGM NOT DETECTED
== END 2021-06-15 13:39 | disposition home or self-care (01) | DRG 690 ==
LOC: ER 18:14 → MEDSURG 18:55
PROVIDERS: Emergency Medicine; Student in an Organized Health Care Education/Training Program; Admitting Provider Internal Medicine; Emergency Provider Family Medicine; PCP Nurse Practitioner; Visit Provider Internal Medicine
DX: N39.0 Urinary tract infection, site not specified (principal); E87.1 Hypo-osmolality and hyponatremia; N17.9 Acute kidney failure, unspecified; E86.0 Dehydration; R11.2 Nausea with vomiting, unspecified; R10.30 Lower abdominal pain, unspecified; R19.00 Intra-abdominal and pelvic swelling, mass and lump, unspecified site; R21 Rash and other nonspecific skin eruption; T36.8X5A Adverse effect of other systemic antibiotics, initial encounter; K76.0 Fatty (change of) liver, not elsewhere classified; R26.2 Difficulty in walking, not elsewhere classified; R74.01 Elevation of levels of liver transaminase levels; N90.4 Leukoplakia of vulva; Z85.828 Personal history of other malignant neoplasm of skin; Z90.710 Acquired absence of both cervix and uterus; Z87.891 Personal history of nicotine dependence; Z79.891 Long term (current) use of opiate analgesic
CPT/HCPCS: 36415; 70450; 71045; 74176; 76856; 80048; 80053; 81001; 82436; 82607; 83605; 83690; 83935; 84133; 84300; 84443; 84484; 85025; 86304; 86618; 86666; 86705; 86706; 86709; 86757; 86803; 87040; 87086; 87340; 87426; 93005; 97110; 97161; 99285; J0696; J3480; J7030

== ENCOUNTER → 2021-06-28 07:55 | Outpatient (BNVA) | payer OTHER, SELFPAY | PROVIDERS: PCP Nurse Practitioner; Visit Provider Anesthesiology | DX: G89.29 Other chronic pain (principal); M47.816 Spondylosis without myelopathy or radiculopathy, lumbar region; M43.12 Spondylolisthesis, cervical region; M50.90 Cervical disc disorder, unspecified, unspecified cervical region; M50.020 Cervical disc disorder with myelopathy, mid-cervical region, unspecified level; Z79.891 Long term (current) use of opiate analgesic; Z87.891 Personal history of nicotine dependence | CPT/HCPCS: 99214 ==

== ENCOUNTER → 2021-08-24 09:20 | Outpatient (BNVA) | payer OTHER, SELFPAY | PROVIDERS: PCP Nurse Practitioner; Visit Provider Anesthesiology | DX: G89.29 Other chronic pain (principal); M47.816 Spondylosis without myelopathy or radiculopathy, lumbar region; M43.12 Spondylolisthesis, cervical region; M50.90 Cervical disc disorder, unspecified, unspecified cervical region; M50.020 Cervical disc disorder with myelopathy, mid-cervical region, unspecified level; Z79.891 Long term (current) use of opiate analgesic | CPT/HCPCS: 99214 ==

== ENCOUNTER → 2021-09-12 12:39 | Outpatient (BNVA) | payer OTHER, SELFPAY | PROVIDERS: PCP Nurse Practitioner; Visit Provider Anesthesiology Pain Medicine | DX: M16.12 Unilateral primary osteoarthritis, left hip (principal); Z79.891 Long term (current) use of opiate analgesic | CPT/HCPCS: 20610; 77002; J1030; J3490 ==

== ENCOUNTER → 2021-09-26 08:42 | Outpatient (BNVA) | payer OTHER, SELFPAY | PROVIDERS: PCP Nurse Practitioner; Visit Provider Anesthesiology Pain Medicine | DX: G89.29 Other chronic pain (principal); M25.552 Pain in left hip; M50.020 Cervical disc disorder with myelopathy, mid-cervical region, unspecified level; M50.90 Cervical disc disorder, unspecified, unspecified cervical region; M47.816 Spondylosis without myelopathy or radiculopathy, lumbar region; Z79.891 Long term (current) use of opiate analgesic; Z87.891 Personal history of nicotine dependence | CPT/HCPCS: 99205 ==

== ENCOUNTER → 2021-10-17 09:15 | Outpatient (BNVA) | payer OTHER, SELFPAY | PROVIDERS: PCP Nurse Practitioner; Visit Provider Anesthesiology Pain Medicine | DX: G89.29 Other chronic pain (principal); M25.552 Pain in left hip; M25.551 Pain in right hip; M43.12 Spondylolisthesis, cervical region; M50.020 Cervical disc disorder with myelopathy, mid-cervical region, unspecified level; M50.90 Cervical disc disorder, unspecified, unspecified cervical region; M47.816 Spondylosis without myelopathy or radiculopathy, lumbar region; Z87.891 Personal history of nicotine dependence; Z79.891 Long term (current) use of opiate analgesic | CPT/HCPCS: 99214 ==

== ENCOUNTER → 2021-11-01 13:06 | Outpatient (BNVA) | payer OTHER, SELFPAY | PROVIDERS: PCP Nurse Practitioner; Visit Provider Anesthesiology Pain Medicine | DX: G89.29 Other chronic pain (principal); M54.2 Cervicalgia; Z79.891 Long term (current) use of opiate analgesic; M47.816 Spondylosis without myelopathy or radiculopathy, lumbar region | CPT/HCPCS: 64635; 64636; J1030 ==

== ENCOUNTER → 2021-11-15 12:52 | Outpatient (BNVA) | payer OTHER, SELFPAY | PROVIDERS: PCP Nurse Practitioner; Visit Provider Anesthesiology Pain Medicine | DX: G89.29 Other chronic pain (principal); Z79.891 Long term (current) use of opiate analgesic; Z87.891 Personal history of nicotine dependence; M47.816 Spondylosis without myelopathy or radiculopathy, lumbar region | CPT/HCPCS: 64635; 64636; J1030 ==

== ENCOUNTER → 2021-11-29 09:32 | Outpatient (BNVA) | payer OTHER, SELFPAY | PROVIDERS: PCP Nurse Practitioner; Visit Provider Anesthesiology Pain Medicine | DX: G89.29 Other chronic pain (principal); M47.816 Spondylosis without myelopathy or radiculopathy, lumbar region; M43.12 Spondylolisthesis, cervical region; M50.90 Cervical disc disorder, unspecified, unspecified cervical region; M50.020 Cervical disc disorder with myelopathy, mid-cervical region, unspecified level; M25.551 Pain in right hip; M25.552 Pain in left hip; Z79.891 Long term (current) use of opiate analgesic | CPT/HCPCS: 99214; 99215 ==

== ENCOUNTER → 2021-12-25 09:03 | Outpatient (BNVA) | payer OTHER, SELFPAY | PROVIDERS: PCP Nurse Practitioner; Visit Provider Anesthesiology Pain Medicine | DX: G89.29 Other chronic pain (principal); M43.12 Spondylolisthesis, cervical region; M50.020 Cervical disc disorder with myelopathy, mid-cervical region, unspecified level; M50.90 Cervical disc disorder, unspecified, unspecified cervical region; M47.816 Spondylosis without myelopathy or radiculopathy, lumbar region; M25.551 Pain in right hip; M25.552 Pain in left hip; Z79.891 Long term (current) use of opiate analgesic; Z87.891 Personal history of nicotine dependence | CPT/HCPCS: 99214; 99215 ==

== ENCOUNTER 2022-01-11 09:25 | Outpatient (CLI) | payer OTHER, SELFPAY ==
--- NOTE | 2022-01-11 09:42 | MM_ITS ---
WS: [id number] SCREENING DIGITAL BREAST TOMOSYNTHESIS MAMMOGRAM WITH CAD HISTORY: SCREENING COMPARISON: 09/18/2018 and 02/01/2021 and 01/19/2020 Bilateral CC and MLO with tomosynthesis and synthetic mammography submitted. Computer aided detection analyzed. Breast composition: There are scattered areas of fibroglandular density. Focal area of distortion and increased density in the anterior RIGHT breast. Distortion is just posterior to the nipple and incre ased density is just lateral to the RIGHT nipple. Otherwise benign calcifications in each breast. MM/[place] [id number] IMPRESSION: BI-RADS: 0-Incomplete: Need additional imaging evaluation FOLLOW UP: Need Additional Imaging RIGHT breast: Spot compression views (CC and MLO). True ML. Ultrasound to follo w if abnormality persists.
== END 2022-01-11 09:26 | disposition home or self-care (01) ==
LOC: RAD 09:27
PROVIDERS: PCP Nurse Practitioner; Visit Provider Nurse Practitioner
DX: Z12.31 Encounter for screening mammogram for malignant neoplasm of breast (principal)
CPT/HCPCS: 77063; 77067

== ENCOUNTER → 2022-01-26 12:29 | Outpatient (BNVA) | payer OTHER, SELFPAY | PROVIDERS: PCP Nurse Practitioner; Visit Provider Specialist | DX: H53.2 Diplopia (principal); M60.9 Myositis, unspecified | CPT/HCPCS: 83516; 83519; 99204 ==

== ENCOUNTER → 2022-01-29 09:03 | Outpatient (BNVA) | payer OTHER, SELFPAY | PROVIDERS: PCP Nurse Practitioner; Visit Provider Anesthesiology Pain Medicine | DX: G89.29 Other chronic pain (principal); R19.00 Intra-abdominal and pelvic swelling, mass and lump, unspecified site; M43.12 Spondylolisthesis, cervical region; M50.020 Cervical disc disorder with myelopathy, mid-cervical region, unspecified level; M50.90 Cervical disc disorder, unspecified, unspecified cervical region; M47.816 Spondylosis without myelopathy or radiculopathy, lumbar region; M25.551 Pain in right hip; M25.552 Pain in left hip; Z87.891 Personal history of nicotine dependence; Z79.891 Long term (current) use of opiate analgesic | CPT/HCPCS: 36415; 82977; 83615; 84450; 84460; 99214; 99215 ==

== ENCOUNTER → 2022-02-22 09:50 | Outpatient (BNVA) | payer OTHER, SELFPAY | PROVIDERS: PCP Nurse Practitioner; Visit Provider Anesthesiology Pain Medicine | DX: G89.29 Other chronic pain (principal); M43.12 Spondylolisthesis, cervical region; M50.020 Cervical disc disorder with myelopathy, mid-cervical region, unspecified level; M50.90 Cervical disc disorder, unspecified, unspecified cervical region; M47.816 Spondylosis without myelopathy or radiculopathy, lumbar region; M25.551 Pain in right hip; M25.552 Pain in left hip; Z87.891 Personal history of nicotine dependence; Z79.891 Long term (current) use of opiate analgesic | CPT/HCPCS: 99214 ==

== ENCOUNTER 2022-02-28 11:39 | Outpatient (CLI) | payer OTHER, SELFPAY ==
--- NOTE | 2022-02-28 | US_ITS ---
ADDITIONAL VIEWS RIGHT MAMMOGRAM WITH DIGITAL BREAST TOMOSYNTHESIS. RIGHT BREAST ULTRASOUND HISTORY: ABNORMAL MAMMOGRAM COMPARISON: 01/11/2022, 02/01/2021 and 01/19/2020 RIGHT MAMMOGRAM: Spot compression views and true ML with digital breast tomosynthesis and SM. Asymmetry in the anterior breast completely resolves. Less architectural distortion. There is linear asymmetry which is nearly similar to prior studies. Benign calcifications. RIGHT BREAST ULTRASOUND 2-D and color Doppler imaging submitted. Ultrasound is directed from the 9-1 o'clock axis of the RIGHT breast. There are multiple small cysts identified. No distortion or mass or shadowing. The largest cyst is at 10:00, 2 cm from the nipple measuring 1.3 x 1.3 x 0.5 cm. IMPRESSION: BI-RADS: 2-Benign FOLLOW UP: 1 Year Follow-up Return to annual screening mammography. SANDRA
--- NOTE | 2022-02-28 11:58 | MM_ITS ---
WS: [id number] ADDITIONAL VIEWS RIGHT MAMMOGRAM WITH DIGITAL BREAST TOMOSYNTHESIS. RIGHT BREAST ULTRASOUND HISTORY: ABNORMAL MAMMOGRAM COMPARISON: 01/11/2022, 02/01/2021 and 01/19/2020 RIGHT MAMMOGRAM: Spot compression views and true ML with digital breast tomosynthesis and SM. Asymmetry in the anterior breast completely resolves. Less architectural distortion. There is linear asymmetry which is nearly similar to prior studies. Benign calcifications. RIGHT BREAST ULTRASOUND 2-D and color Doppler imaging submitted. Ultrasound is directed from the 9-1 o'clock axis of the RIGHT breast. There are multiple small cysts identified. No distortion or mass or shadowing. The largest cyst is at 10:00, 2 cm from the nipple me asuring 1.3 x 1.3 x 0.5 cm. MM/[place] [id number] IMPRESSION: BI-RADS: 2-Benign FOLLOW UP: 1 Year Follow-up Return to annual screening mammography.
== END 2022-02-28 11:40 | disposition home or self-care (01) ==
PROVIDERS: PCP Nurse Practitioner; Visit Provider Nurse Practitioner
DX: R92.8 Other abnormal and inconclusive findings on diagnostic imaging of breast (principal)
CPT/HCPCS: 76642; 77061

== ENCOUNTER → 2022-03-12 12:24 | Outpatient (BNVA) | payer OTHER, SELFPAY | PROVIDERS: PCP Nurse Practitioner; Visit Provider Specialist | DX: H53.2 Diplopia (principal); R20.0 Anesthesia of skin; R20.2 Paresthesia of skin; G37.9 Demyelinating disease of central nervous system, unspecified; G43.009 Migraine without aura, not intractable, without status migrainosus; Z87.891 Personal history of nicotine dependence | CPT/HCPCS: 99214; 99215 ==

== ENCOUNTER → 2022-03-21 14:17 | Outpatient (BNVA) | payer OTHER, SELFPAY | PROVIDERS: PCP Nurse Practitioner; Visit Provider Anesthesiology Pain Medicine | DX: Z79.891 Long term (current) use of opiate analgesic (principal); Z87.891 Personal history of nicotine dependence; M54.12 Radiculopathy, cervical region; M54.16 Radiculopathy, lumbar region | CPT/HCPCS: 62321; J1100 ==

== ENCOUNTER → 2022-04-10 10:12 | Outpatient (BNVA) | payer OTHER, SELFPAY | PROVIDERS: PCP Nurse Practitioner; Visit Provider Anesthesiology Pain Medicine | DX: M16.0 Bilateral primary osteoarthritis of hip (principal); Z79.891 Long term (current) use of opiate analgesic; G89.29 Other chronic pain; M43.12 Spondylolisthesis, cervical region; M47.816 Spondylosis without myelopathy or radiculopathy, lumbar region; M50.020 Cervical disc disorder with myelopathy, mid-cervical region, unspecified level; M50.90 Cervical disc disorder, unspecified, unspecified cervical region | CPT/HCPCS: 99214; 99215 ==

== ENCOUNTER 2022-04-19 08:46 | Outpatient (RCR) | payer OTHER, SELFPAY | END 2022-04-25 23:59 | disposition home or self-care (01) | LOC: SPT 08:46 | PROVIDERS: PCP Nurse Practitioner; Referring Provider Nurse Practitioner; Visit Provider Nurse Practitioner | DX: M54.50 Low back pain, unspecified (principal) | CPT/HCPCS: 97161 ==

== ENCOUNTER 2022-04-23 09:57 | Outpatient (CLI) | payer OTHER, SELFPAY ==
--- NOTE | 2022-04-23 11:03 | XR_ITS ---
WS: [id number] Exam: XR hip BI 3-4V wo/w [place] [id number] Date/Time of Exam: 04/23/2022 11:23 AM Reason For Exam: M16.9 - Osteoarthritis of hip, unspecified Comparison 06/19/2016. Right hip. No fracture or dislocation. Mild degenerative change of the joint compartment. Hypertrophi c bone formation along the lateral superior margin of the acetabulum that might predispose the patien t to femoral acetabular impingement. Normal soft tissues. XR/XR hip BI 3-4V wo/[place] [id number] IMPRESSION: 1. No fracture or dislocation. 2. Hypertrophic spurring along the superior lateral margin of the acetabulum th at might predispose the patient to femoral acetabular impingement. Left hip. No fracture or dislocation. Normal soft tissues. Minimal degenerative change of the acetabulum. The joint compartment is relatively well maintained. IMPRESSION: 1. Minimal DJD. No other significant finding.
== END 2022-04-23 09:58 | disposition home or self-care (01) ==
PROVIDERS: PCP Nurse Practitioner; Visit Provider Anesthesiology Pain Medicine
DX: M16.9 Osteoarthritis of hip, unspecified (principal)
CPT/HCPCS: 73522

== ENCOUNTER 2022-05-03 | Outpatient (RCR) | payer OTHER, SELFPAY | END 2022-05-25 23:59 | disposition home or self-care (01) | LOC: SPT | PROVIDERS: PCP Nurse Practitioner; Referring Provider Nurse Practitioner; Visit Provider Nurse Practitioner | DX: M54.50 Low back pain, unspecified (principal) | CPT/HCPCS: 97113 ==

== ENCOUNTER → 2022-05-10 10:52 | Outpatient (BNVA) | payer OTHER, SELFPAY | PROVIDERS: PCP Nurse Practitioner; Visit Provider Anesthesiology Pain Medicine | DX: G89.29 Other chronic pain (principal); M43.12 Spondylolisthesis, cervical region; M50.90 Cervical disc disorder, unspecified, unspecified cervical region; M50.020 Cervical disc disorder with myelopathy, mid-cervical region, unspecified level; M47.816 Spondylosis without myelopathy or radiculopathy, lumbar region; M79.605 Pain in left leg; M79.604 Pain in right leg; Z87.891 Personal history of nicotine dependence | CPT/HCPCS: 99214 ==

== ENCOUNTER 2022-05-26 06:00 | Outpatient (RCR) | payer OTHER, SELFPAY | END 2022-06-25 23:59 | disposition home or self-care (01) | LOC: SPT 06:00 | PROVIDERS: PCP Nurse Practitioner; Visit Provider Nurse Practitioner | DX: M54.50 Low back pain, unspecified (principal) | CPT/HCPCS: 97113 ==

== ENCOUNTER → 2022-05-31 10:32 | Outpatient (BNVA) | payer OTHER, SELFPAY | PROVIDERS: PCP Nurse Practitioner; Visit Provider Anesthesiology Pain Medicine | DX: G89.29 Other chronic pain (principal); M43.12 Spondylolisthesis, cervical region; M47.816 Spondylosis without myelopathy or radiculopathy, lumbar region; M50.020 Cervical disc disorder with myelopathy, mid-cervical region, unspecified level; M50.90 Cervical disc disorder, unspecified, unspecified cervical region; M25.559 Pain in unspecified hip; M79.604 Pain in right leg; M79.605 Pain in left leg; Z87.891 Personal history of nicotine dependence | CPT/HCPCS: 99214 ==

== ENCOUNTER → 2022-06-12 13:00 | Outpatient (BNVA) | payer OTHER, SELFPAY | PROVIDERS: PCP Nurse Practitioner; Visit Provider Specialist | DX: R90.82 White matter disease, unspecified (principal); H53.2 Diplopia; M54.2 Cervicalgia; M54.9 Dorsalgia, unspecified; G89.29 Other chronic pain; Z87.891 Personal history of nicotine dependence | CPT/HCPCS: 99213 ==

== ENCOUNTER 2022-06-26 06:00 | Outpatient (RCR) | payer OTHER, SELFPAY | END 2022-07-25 23:59 | disposition home or self-care (01) | LOC: SPT 06:00 | PROVIDERS: PCP Nurse Practitioner; Visit Provider Nurse Practitioner | DX: M54.50 Low back pain, unspecified (principal) | CPT/HCPCS: 97113; 97530 ==

== ENCOUNTER → 2022-06-28 10:47 | Outpatient (BNVA) | payer OTHER, SELFPAY | PROVIDERS: PCP Nurse Practitioner; Visit Provider Anesthesiology Pain Medicine | DX: G89.29 Other chronic pain (principal); M43.12 Spondylolisthesis, cervical region; M50.020 Cervical disc disorder with myelopathy, mid-cervical region, unspecified level; M50.90 Cervical disc disorder, unspecified, unspecified cervical region; M47.816 Spondylosis without myelopathy or radiculopathy, lumbar region; M25.559 Pain in unspecified hip | CPT/HCPCS: 99214 ==

== ENCOUNTER → 2022-07-25 10:12 | Outpatient (BNVA) | payer OTHER, SELFPAY | PROVIDERS: PCP Nurse Practitioner; Visit Provider Anesthesiology Pain Medicine | DX: G89.29 Other chronic pain (principal); M47.816 Spondylosis without myelopathy or radiculopathy, lumbar region; M43.12 Spondylolisthesis, cervical region; M50.020 Cervical disc disorder with myelopathy, mid-cervical region, unspecified level; M50.90 Cervical disc disorder, unspecified, unspecified cervical region; M25.559 Pain in unspecified hip; M79.604 Pain in right leg; M79.605 Pain in left leg | CPT/HCPCS: 99214 ==

== ENCOUNTER → 2022-08-13 09:29 | Outpatient (BNVA) | payer OTHER, SELFPAY | PROVIDERS: PCP Nurse Practitioner; Visit Provider Anesthesiology Pain Medicine | DX: G89.29 Other chronic pain (principal); M43.12 Spondylolisthesis, cervical region; M50.020 Cervical disc disorder with myelopathy, mid-cervical region, unspecified level; M50.90 Cervical disc disorder, unspecified, unspecified cervical region; M47.816 Spondylosis without myelopathy or radiculopathy, lumbar region; M25.551 Pain in right hip; M25.552 Pain in left hip | CPT/HCPCS: 99214 ==

== ENCOUNTER → 2022-09-10 10:36 | Outpatient (BNVA) | payer OTHER, SELFPAY | PROVIDERS: PCP Nurse Practitioner; Visit Provider Anesthesiology Pain Medicine | DX: G89.29 Other chronic pain (principal); M43.12 Spondylolisthesis, cervical region; M47.816 Spondylosis without myelopathy or radiculopathy, lumbar region; M25.551 Pain in right hip; M25.552 Pain in left hip; M50.90 Cervical disc disorder, unspecified, unspecified cervical region; M50.020 Cervical disc disorder with myelopathy, mid-cervical region, unspecified level | CPT/HCPCS: 99213; 99214 ==

== ENCOUNTER → 2022-10-08 11:21 | Outpatient (BNVA) | payer OTHER, SELFPAY | PROVIDERS: PCP Nurse Practitioner; Visit Provider Anesthesiology Pain Medicine | DX: G89.29 Other chronic pain (principal); M43.12 Spondylolisthesis, cervical region; M50.020 Cervical disc disorder with myelopathy, mid-cervical region, unspecified level; M50.90 Cervical disc disorder, unspecified, unspecified cervical region; M47.816 Spondylosis without myelopathy or radiculopathy, lumbar region; M25.551 Pain in right hip | CPT/HCPCS: 99214 ==

== ENCOUNTER → 2022-10-25 12:47 | Outpatient (BNVA) | payer OTHER, SELFPAY | PROVIDERS: PCP Nurse Practitioner; Visit Provider Anesthesiology Pain Medicine | DX: M54.12 Radiculopathy, cervical region (principal) | CPT/HCPCS: 62321; J1100 ==

== ENCOUNTER → 2022-11-13 08:40 | Outpatient (BNVA) | payer OTHER, SELFPAY | PROVIDERS: PCP Nurse Practitioner; Visit Provider Anesthesiology Pain Medicine | DX: G89.29 Other chronic pain (principal); M43.12 Spondylolisthesis, cervical region; M50.020 Cervical disc disorder with myelopathy, mid-cervical region, unspecified level; M50.90 Cervical disc disorder, unspecified, unspecified cervical region; M47.816 Spondylosis without myelopathy or radiculopathy, lumbar region; M25.551 Pain in right hip; M25.552 Pain in left hip | CPT/HCPCS: 99214 ==

== ENCOUNTER 2022-11-17 19:57 | Emergency (ER) | payer OTHER, SELFPAY ==
[2022-11-17 20:07] VITALS: BP 100/70; PULSE 118; RESP 16; O2SAT 94; BMI 29.0
--- NOTE | 2022-11-17 20:44 | ECG_ITS ---
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 Measurements Intervals [place] Rate: 107 P: 74 TX: 162 QRS: 85 QRSD: 102 T: 73 QT: 362 QTc: 485 Interpretive Statements SINUS TACHYCARDIA Compared to ECG 06/13/2021 16:23:07 Sinus rhythm no longer present Indeterminate axis no longer present Incomplete right bundle-branch block no longer present Electronically Signed On 11-18-2022 7:18:14 CDT by All Jones M.D. [id number]
[2022-11-17] MEDS: OLANZapine 10 mg ODT 20 MG PO (21:12)
[2022-11-17] MEDS: valproic acid inj 500 MG in sodium chloride 0.9% 50 ML 55 MG IV (21:18)
[2022-11-17 21:27] LABS: Basophils # 0.1 10^3/uL (0.0-0.1); Basophils % 0.6 %; Eosinophils # 0.1 10^3/uL (0.0-0.8); Eosinophils % 0.6 %; Hemoglobin 13.8 g/dL (11.5-15.3); Lymphocytes # 2.5 10^3/uL (0.8-4.8); Lymphocytes % 25.6 %; Mean Corpuscular HGB Conc 32.1 g/dL (30.0-36.0); Mean Corpuscular Hemoglobin 28.5 pg (28.0-34.0); Mean Corpuscular Volume 88.7 fl (81-99); Mean Platelet Volume 9.2 fL (7.4-10.4); Monocytes # 1.1 10^3/uL (0.2-0.9); Neutrophils # 5.95 10^3/uL (1.8-7.7); Neutrophils % 61.9 %; Nucleated Red Blood Cells % 0 %; Platelet Count 317 10^3/cmm (130-400); Red Blood Count 4.85 10^6/uL (4.1-5.3); Red Cell Distribution Width 13.3 % (12.1-15.1); White Blood Count 9.6 10^3/uL (4.0-10.0)
[2022-11-17 21:59] LABS: Alanine Aminotransferase 97 U/L (0-33); Albumin Level 4.5 g/dL (3.5-5.2); Alkaline Phosphatase 70 U/L (35-105); Anion Gap 19.9 (5-19); Aspartate Amino Transferase 233 U/L (0-32); Blood Urea Nitrogen 32 mg/dL (8-23); Calcium 9.3 mg/dL (8.5-10.5); Carbon Dioxide 27 mmol/L (22-29); Chloride 98 mmol/L (98-107); Globulin 3.2 g/dL (1.3-4.6); Glomerular Filtration Rate 55.3 mL/min (90-130); Glucose 95 mg/dL (65-115); Osmolality Calculated 301 mOsm/kg (285-295); Salicylate 0.5 mg/dL (3-10); Sodium 142 mmol/L (136-145); Thyroid Stimulating Hormone 1.71 uIU/mL (0.27-4.20); Total Bilirubin 0.7 mg/dL (0.15-1.2); Total Protein 7.7 g/dL (6.6-8.7)
[2022-11-17 22:07] LABS: Acetaminophen < 5.0 ug/mL (10-30); Alcohol Level < 10 mg/dL (0-10); Creatinine Clr Calc Pharmacy 58.8086
[2022-11-17 22:08] LABS: Potassium 2.9 mmol/L (3.5-5.1)
[2022-11-17 22:18] VITALS: BP 82/48; PULSE 100; RESP 16; O2SAT 88
[2022-11-17] MEDS: sodium chloride 0.9% 1,000 ML 999 ML IV (22:26)
[2022-11-17] MEDS: potassium chloride premix 100 ML 50 MEQ IV (22:30)
[2022-11-17 22:45] VITALS: BP 93/41; PULSE 95; RESP 16; O2SAT 95
[2022-11-17 23:00] VITALS: BP 122/58; PULSE 97; RESP 16; O2SAT 99
[2022-11-17 23:40] LABS: Add Urine Microscopic? YES; Bilirubin Urine 1+ (Negative); Blood Urine 2+ (Negative); Glucose Urine UA Norm (Normal); Ketones Urine 1+ (Negative); Leukocyte Esterase Urine Negative (Negative); Nitrate Urine Negative (Negative); Protein Urine Neg (Negative); Urine Appearance Hazy (CLEAR); Urine Color Yellow (Yellow); Urobilinogen Urine Neg (Negative); pH Urine 5 (5-7)
[2022-11-17 23:43] LABS: Add Urine Culture? Yes; Amorphous Sediment Urine 1+ /hpf; Amphetamines Screen Urine Positive (Negative); Bacteria Urine 2+ /hpf; Barbiturates Screen Urine Negative (Negative); Benzodiazepines Screen Urine Negative (Negative); Cocaine Screen Urine Negative (Negative); Hyaline Casts Urine 0-4 /lpf; Mucus Urine 2+ /hpf; Opiate Screen Urine Positive (Negative); PCP Screen Urine Negative (Negative); RBC Urine 40-50 /hpf (0-2); THC Screen Urine Negative (Negative); WBC Urine 0-4 /hpf (0-5)
[2022-11-18 00:03] VITALS: BP 127/66; PULSE 92; RESP 16; O2SAT 97
--- NOTE | 2022-11-18 00:50 | CTR_ITS ---
PROCEDURE INFORMATION: Exam: CT Head Without Contrast Exam date and time: 11/18/2022 1:17 AM Age: 67 years old Clinical indication: Altered mental status/memory loss TECHNIQUE: Imaging protocol: Computed tomography of the head without contrast. Radiation optimization: All CT scans at this facility use at least one of these dose optimization techniques: automated exposure control; mA and/or kV adjustment per patient size (includes targeted exams where dose is matched to clinical indication); or iterative reconstruction. REPORTING DATA: Count of CT and Cardiac NM exams in prior 12 months: This patient has received 0 known CTs and 0 known cardiac nuclear medicine studies in the 12 months prior to the current study. COMPARISON: MR head wo/w con [id number] 12/22/2021 12:57 PM RADIATION DOSE METRICS: Total DLP (mGy-cm): 998.73 FINDINGS: Brain: No focal hemorrhage or midline shift is identified. The ventricles and parenchyma show mild atrophy and chronic bicerebral white matter ischemic change. Cerebral ventricles: No ventriculomegaly or evidence of hydrocephalus. Paranasal sinuses: No evidence of acute sinusitis. [id number] chronic appearing left sphenoid sinus mucosal thickening. Mastoid air cells: Visualized mastoid air cells are well aerated. Bones/joints: No displaced skull fracture is noted. Soft tissues: Unremarkable. Vasculature: Diffuse vascular calcifications are present. CT/CT head wo con* [id number] IMPRESSION: 1. No acute intracranial abnormality. 2. Mild age-related changes. 3. Chronic left sphenoid sinus disease.
--- NOTE | 2022-11-18 01:29 | W.ED.PSYCHS ---
HPI - Psych General: Chief Complaint: Psychiatric Symptoms Stated Complaint: Altered mental status Time Seen by Provider: 11/17/22 20:06 Source: patient History of Present Illness: 67-year-old female who lives at home alone. Family lives across the street. History is somewhat unreliable from the patient. She has had erratic behavior for several hours at least. She has trouble describing her symptoms, but can tell me about her history regarding white matter changes on MRI she had, recent visit with her neurologist Dr. Logan, and a shrinking pituitary . She says she feels achy. She says that she takes gabapentin for her nerves and that she may have missed a dose or more, because her legs seem to keep moving. She denies suicidal or homicidal ideation. Evidently according to the patient's family, she has abused substances in the past. MD complaint: altered mental status Onset (ago): unknown Duration: constant Relieving factors: none Associated psychiatric symptoms: delusions Associated symptoms: Reports visual hallucinations ( Birds flying ) and delusions; Deny auditory hallucinations, homicidal ideation or suicidal ideation Review of Systems General: Reports: ROS unobtainable due to mental status Card: Denies: chest pain Resp: Denies: dyspnea GI: Denies: vomiting Psych: Reports: visual hallucinations ( Birds flying ); Denies: auditory hallucinations, suicidal ideation or homicidal ideation [facility] PFSH: Medical History Cervical disc disease Cervical disc disorder with myelopathy of mid-cervical region Colon polyp Elevated transaminase level Encounter for long-term use of opiate analgesic Lichen sclerosus of vulva PTSD (post-traumatic stress disorder) Spondylolisthesis of cervical region 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 Social History Smoking and tobacco status: never smoked Second hand smoke exposure: No Alcohol intake: never Adopted: Yes Household members: spouse Marital status: Current occupational status: retired and disabled Physical Exam Const: GENERAL APPEARANCE: cooperative ORIENTATION/CONSCIOUSNESS: Yes awake, Yes oriented to person, Yes oriented to place and Yes confused (Mildly); not oriented to time HENMT: COMMON NORMALS: normocephalic, atraumatic and Normal external nose present HEAD & SCALP: normocephalic and atraumatic FACE & SINUS: normal facial exam NOSE: Normal external nose present Eye: COMMON NORMALS: Equal, round and reactive pupils present and EOMs intact bilaterally PUPIL: Yes Equal, round and reactive pupils present Neck/C-Spine: GENERAL: Yes trachea midline Chest: CHEST: Yes Symmetrical chest wall rise Resp: COMMON NORMALS: normal respiratory effort, No use of accessory muscles and clear to auscultation bilaterally AUSCULTATION: clear to auscultation bilaterally Cardio: COMMON NORMALS: regular rate and regular rhythm RATE: regular rate RHYTHM: regular rhythm GI: COMMON NORMALS: Normal to inspection, nondistended, normoactive bowel sounds present and Soft to palpation PALPATION: Yes Soft to palpation Neuro: SENSORIUM/ORIENTATION: Yes oriented to person, Yes oriented to place and No oriented to time CRANIAL NERVES: Yes CN normal except as noted SPEECH: speech normal (Nonslurred) and Other neuro speech findings (Excessive) SENSORY EXAM: Yes extremities (Intact) MOTOR EXAM: Normal motor muscle tone present throughout and Motor abnormalites present (Repetitive movement of lower extremities) Psych: COMMON NORMALS: cooperative ATTITUDE: Yes engaged ACTIVITY/MOTOR BEHAVIOR: Yes psychomotor agitation and Yes fidgeting SPEECH: Yes excessive THOUGHT PROCESS: disorganized THOUGHT CONTENT: No Suicidality present, No Homicidality present and Yes delusions ATTENTION/CONCENTRATION: Yes attention grossly intact and Yes concentration grossly impaired Skin: COMMON NORMALS: no wounds Course Vital Signs: Vital signs: Vital Signs Pulse Rate 89 11/18/22 02:43 Respiratory Rate 16 11/18/22 02:43 Blood Pressure 101/60 11/18/22 02:43 Pulse Oximetry 92 11/18/22 02:43 Oxygen Delivery Me thod 11/17/22 22:45 Oxygen Flow Rate 2 11/17/22 22:45 MDM - Psych Medical Decision Making This patient arrives to the emergency department fidgeting, with excessive speech. She is somewhat tangential, but appears to remember most of her medical history. She did appear to be experiencing effects of intoxication of some sort. Laboratory was obtained. There was a report from family to the nursing staff about a history of faviola. For this, she was given 500 mg of Depacon. For the mild agitation, she was given olanzapine sublingual. She rested for several hours, and awaken to voice. She was given IV fluid bolus. She was found to have a low potassium of 2.9 which was repleted both IV and orally. BUN was mildly elevated hence the fluid. Urinalysis did not show evidence of urinary tract infection. Urine drug screening was positive for opiates and amphetamines. Amphetamine intoxication does explain her symptom presentation. Her CBC was normal. Head CT showed no acute changes. After resting for several hours, the patient awakened to voice. She was directable. She walks down the [place] and back with her walker, which she says she usually uses to ambulate. She was able to recognize family members in the room. I spoke with the family regarding amphetamine intoxication. Medically she appears stable, and her mental status was slowly improving. As she is not suicidal or homicidal, and not acutely overtly psychotic at least at this point, she is not a candidate for psychiatric admission. She is obviously not a candidate for medical admission given her work-up and treatment in the ER. She has been able to walk in the ER. Given these parameters, she would be allowed discharge to the custody of family/responsible adult to observe the patient at home and bring back for any worsening or concerns. The family did not seem satisfied with this. I offered continued observation in the emergency department for several more hours to allow them to go home and rest prior to her discharge. They declined and stated they wish to take her home. She was allowed discharge as above. Lab Data 11/17/22 21:20 11/17/22 21:[address] 11/18/22 00:50 IMPRESSION: 1. No acute intracranial abnormality. 2. Mild age-related changes. 3. Chronic left sphenoid sinus disease. Laboratory Results WBC 9.6 10^3/uL (4.0-10.0) 11/17/22 21:20 RBC 4.85 10^6/uL (4.1-5.3) 11/17/22 21:20 Hgb 13.8 g/dL (11.5-15.3) 11/17/22 21:20 Hct 43.0 % (37.0-47.0) 11/17/22 21:20 MCV 88.7 fl (81-99) 11/17/22 21:20 MCH 28.5 pg (28.0-34.0) 11/17/22 21:20 MCHC 32.1 g/dL (30.0-36.0) 11/17/22 21: RDW 13.3 % (12.1-15.1) 11/17/22 21:20 Plt Count 317 10^3/cmm (130-400) 11/17/22 21:20 MPV 9.2 fL (7.4-10.4) 11/17/22 21:20 Neut % (Auto) 61.9 % 11/17/22 21: Lymph % (Auto) 25.6 % 11/17/22 21:20 [place] % (Auto) 11.0 % 11/17/22 21:20 Eos % (Auto) 0.6 % 11/17/22 21:20 Baso % (Auto) 0.6 % 11/17/22 21:20 Neut # (Auto) 5.95 10^3/uL (1.8-7.7) 11/17/22 21: Lymph # (Auto) 2.5 10^3/uL (0.8-4.8) 11/17/22 21:20 [place] # (Auto) 1.1 10^3/uL (0.2-0.9) H 11/17/22 21:20 Eos # (Auto) 0.1 10^3/uL (0.0-0.8) 11/17/22 21:20 Baso # (Auto) 0.1 10^3/uL (0.0-0.1) 11/17/22: Nucleated RBC % (auto) 0 % 11/17/22: Nucleated RBCs # 0.0 /100WBC 11/17/22 21:20 Sodium 142 mmol/L (136-145) 11/17/22 21:20 Potassium 2.9 mmol/L (3.5-5.1) L 11/17/22 21:20 Chloride 98 mmol/L (98-107) 11/17/22 21:20 Carbon Dioxide 27 mmol/L (22-29) 11/17/22 21:20 Anion Gap 19.9 (5-19) H 11/17/22 21:20 BUN 32 mg/dL (8-23) H 11/17/22 21:20 Creatinine 1.0 mg/dL (0.5-0.9) H 11/17/22 21:20 GFR Calculation 55.3 mL/min (90-130) L 11/17/22 21:20 Glucose 95 mg/dL (65-115) 11/17/22 21:20 Calculated Osmolality 301 mOsm/kg (285-295) H 11/17/22 21:20 Calcium 9.3 mg/dL (8.5-10.5) 11/17/22 21:20 Total Bilirubin 0.7 mg/dL (0.15-1.2) 11/17/22 21:20 AST 233 U/L (0-32) H 11/17/22 21:20 ALT 97 U/L (0-33) H 11/17/22 21:20 Alkaline Phosphatase 70 U/L (35-105) 11/17/22 21:20 Total Protein 7.7 g/dL (6.6-8.7) 11/17/22 21:20 Albumin 4.5 g/dL (3.5-5.2) 11/17/22 21:20 Globulin 3.2 g/dL (1.3-4.6) 11/17/22 21:20 TSH 1.71 uIU/mL (0.27-4.20) 11/17/22 21:20 Urine Color Yellow (Yellow) 11/17/22 23:16 Urine Appearance Hazy (CLEAR) A 11/17/22 23:16 Urine pH 5 (5-7) 11/17/22 23:16 Ur Specific [place] 1.020 (1.005-1.030) 11/17/22 23:16 Urine Protein Neg (Negative) 11/17/22 23:16 Urine Glucose (UA) Norm (Normal) 11/17/22 23:16 Urine Ketones 1+ (Negative) H 11/17/22 23:16 Urine Blood 2+ (Negative) H 11/17/22 23:16 Urine Nitrate Negative (Negative) 11/17/22 23:16 Urine Bilirubin 1+ (Negative) H 11/17/22 23:16 Urine Urobilinogen Neg mg/dL (Negative) 11/17/22 23:16 Ur Leukocyte Esterase Negative (Negative) 11/17/22 23:16 Urine RBC 40-50 /hpf (0-2) H 11/17/22 23:16 Urine WBC 0-4 /hpf (0-5) H 11/17/22 23:16 Ur Squamous Epith Cells 5-10 /hpf (0-5) H 11/17/22 23:16 Amorphous Sediment 1+ /hpf 11/17/22 23:16 Urine Bacteria 2+ /hpf (NONE) H 11/17/22 23:16 Hyaline Casts 0-4 /lpf H 11/17/22 23:16 Urine Mucus 2+ /hpf 11/17/22 23:16 Salicylates 0.5 mg/dL (3-10) L 11/17/22 21:20 Urine Opiates Screen Positive ng/mL (Negative) H 11/17/22 23:16 Acetaminophen < 5.0 ug/mL (10-30) L 11/17/22 21:20 Ur Barbiturates Screen Negative ng/mL (Negative) 11/17/22 23:16 Ur Phencyclidine Scrn Negative ng/mL (Negative) 11/17/22 23:16 Ur Amphetamines Screen Positive ng/mL (Negative) H 11/17/22 23:16 U Benzodiazepines Scrn Negative ng/mL (Negative) 11/17/22 23:16 Urine Cocaine Screen Negative ng/mL (Negative) 11/17/22 23:16 U Marijuana (THC) Screen Negative ng/mL (Negative) 11/17/22 23:16 Ethyl Alcohol < 10 mg/dL (0-10) 11/17/22 21:20 Discharge Plan Discharge Patient Disposition: Home Clinical Impression: Drug-induced psychotic disorder Condition: Stable Prescriptions: No Action cetirizine 10 mg tablet 10 mg PO DAILY PRN (Reason: Allergy Symptoms) hydrocodone-acetaminophen 5-325 mg tablet 1 tab PO BID PRN (Reason: pain) 30 Days Qty: 60 0RF Rx Instructions: fill on or after 07/08/21 methylprednisolone acetate [Depo-Medrol] 40 mg/mL suspension 40 mg intra-articular ONCE Qty: 1 0RF bupivacaine (PF) 0.25 % (2.5 mg/mL) solution 2.5 mg intra-articular ONCE Qty: 1 0RF calcitonin (salmon) 200 unit/actuation spray,non-aerosol 1 spray intranasal (ALT) ONCE calcium carbonate-vitamin D3 600 mg(1,500mg) -400 unit capsule 1 cap PO DAILY gabapentin 100 mg capsule 100 mg PO .eight times a day ketoconazole 2 % cream 1 applic TOPICAL BID PRN (Reason: Pain) cyclobenzaprine 10 mg tablet 10 mg PO BID PRN (Reason: Muscle Spasm) trazodone 100 mg tablet 100 mg PO DAILY lisinopril 2.5 mg tablet 2.5 mg PO DAILY conjugated estrogens 0.625 mg tablet 0.625 mg PO DAILY aspirin [Adult Low Dose Aspirin] 81 mg tablet,delayed release (DR/EC) 81 mg PO DAILY dexamethasone sodium phosphate 4 mg/mL solution 8 mg intra-articular ONCE Qty: 2 0RF estradiol 1 mg tablet 1 mg PO DAILY Rx Instructions: off 1 week; repeat cycle hydrocodone-acetaminophen 5-325 mg tablet 1 tab PO BID PRN (Reason: pain) 30 Days Qty: 60 0RF Rx Instructions: may fill 30 days after previous refill. Discharge Orders: Discharge ED (Routine); Ordered 11/18/22 Ordered By: Reece Barlow Referrals: Ledy Dillard FNP [Primary Care Provider] - Patient Instructions: Acute Delirium (ED), Methamphetamine Use Disorder (ED) Activity Restrictions/Additional Instructions: Please do not use or take ilicit substances. Ideally you should be accompanied by a sober adult for the next 12-24 hours to ensure your delerium continues to improve. Follow up with your doctor early next week. Drink plenty of fluids. Return for worsening mental status over time, or development of new or other concerning symptoms. Coding Level of Care Code ED Fitness Floor Attendant for Ousmane Daugherty
[2022-11-18] MEDS: potassium chloride oral liq 20 mEq/15 mL UDC 40 MEQ PO (02:04)
[2022-11-18 02:43] VITALS: BP 101/60; PULSE 89; RESP 16; O2SAT 92
--- NOTE | 2022-11-18 02:48 | PC.NURSE ---
Pt POA and family became angry after talking to . explained to family pt was under the influence of methamphetamines and needed to sober up at home. Pt vitals stable. Pt POA stated she did not agree with her being discharged. This nurse educated pt POA about discharge instructions, medical billing instructor, and follow up care. Pt POA verbalized understanding and denied questions.
== END 2022-11-18 02:59 | disposition home or self-care (01) ==
PROVIDERS: Emergency Provider Emergency Medicine; PCP Nurse Practitioner
DX: F19.959 Other psychoactive substance use, unspecified with psychoactive substance-induced psychotic disorder, unspecified (principal)
CPT/HCPCS: 70450; 80053; 80306; 80307; 81001; 84443; 85025; 87086; 93005; 96365; 96366; 96367; 99285; J3480; J3490; J7030

== ENCOUNTER → 2023-01-30 09:58 | Outpatient (BNVA) | payer OTHER, SELFPAY | PROVIDERS: PCP Nurse Practitioner; Visit Provider Anesthesiology Pain Medicine | DX: G89.29 Other chronic pain (principal); M43.12 Spondylolisthesis, cervical region; M47.816 Spondylosis without myelopathy or radiculopathy, lumbar region; M25.552 Pain in left hip; M25.551 Pain in right hip; M50.90 Cervical disc disorder, unspecified, unspecified cervical region; M50.020 Cervical disc disorder with myelopathy, mid-cervical region, unspecified level | CPT/HCPCS: 99215 ==

== ENCOUNTER → 2023-02-19 13:44 | Outpatient (BNVA) | payer OTHER, SELFPAY | PROVIDERS: PCP Nurse Practitioner; Visit Provider Anesthesiology Pain Medicine | DX: G89.29 Other chronic pain (principal); M47.816 Spondylosis without myelopathy or radiculopathy, lumbar region; M54.2 Cervicalgia | CPT/HCPCS: 64635; 64636; J1030 ==

== ENCOUNTER → 2023-03-04 10:44 | Outpatient (BNVA) | payer OTHER, SELFPAY | PROVIDERS: PCP Nurse Practitioner; Visit Provider Anesthesiology Pain Medicine | DX: G89.29 Other chronic pain (principal); M47.816 Spondylosis without myelopathy or radiculopathy, lumbar region; M43.12 Spondylolisthesis, cervical region; M50.90 Cervical disc disorder, unspecified, unspecified cervical region; M50.020 Cervical disc disorder with myelopathy, mid-cervical region, unspecified level; M25.551 Pain in right hip; M25.552 Pain in left hip | CPT/HCPCS: 99214 ==

== ENCOUNTER 2023-04-02 10:10 | Outpatient (CLI) | payer OTHER, SELFPAY ==
--- NOTE | 2023-04-02 10:25 | MM_ITS ---
WS: [id number] BILATERAL 3D TOMOSYNTHESIS DIGITAL SCREENING MAMMOGRAPHY WITH CAD CLINICAL INFORMATION: SCREENING HISTORY: Screening mammogram. No current complaints. COMPARISON: 2021 TECHNIQUE: Bilateral CC and MLO views. FINDINGS: Scattered fibroglandular densities bilaterally. No suspicious focal mass, asymmetry, calcifications, or architectural distortion. No evidence of malignancy. Punctate and lucent centered calcifications. Stable dense breast tissue anterior right breast previously evaluated. Vascular calcification. IMPRESSION: MM/[place] [id number] BI-RADS: 2-Benign FOLLOW UP: 1 Year Follow-up Recommend return to annual screening mammography.
== END 2023-04-02 10:11 | disposition home or self-care (01) ==
LOC: RAD 10:21 → MOBLMAM 10:22
PROVIDERS: PCP Nurse Practitioner; Visit Provider Nurse Practitioner
DX: Z12.31 Encounter for screening mammogram for malignant neoplasm of breast (principal)
CPT/HCPCS: 77063; 77067

== ENCOUNTER → 2023-05-06 08:49 | Outpatient (BNVA) | payer OTHER, SELFPAY | PROVIDERS: PCP Nurse Practitioner; Visit Provider Anesthesiology Pain Medicine | DX: M43.12 Spondylolisthesis, cervical region (principal); G89.29 Other chronic pain; M47.816 Spondylosis without myelopathy or radiculopathy, lumbar region; M50.020 Cervical disc disorder with myelopathy, mid-cervical region, unspecified level; M50.90 Cervical disc disorder, unspecified, unspecified cervical region; M47.812 Spondylosis without myelopathy or radiculopathy, cervical region; M25.551 Pain in right hip; M25.552 Pain in left hip | CPT/HCPCS: 99214 ==

== ENCOUNTER → 2023-05-22 14:41 | Outpatient (BNVA) | payer OTHER, SELFPAY | PROVIDERS: PCP Nurse Practitioner; Visit Provider Anesthesiology Pain Medicine | DX: M54.2 Cervicalgia (principal) | CPT/HCPCS: 64490; 64491; 64492; J1030; J3490 ==

== ENCOUNTER → 2023-06-05 09:58 | Outpatient (BNVA) | payer OTHER, SELFPAY | PROVIDERS: PCP Nurse Practitioner; Visit Provider Anesthesiology Pain Medicine | DX: G89.29 Other chronic pain; M47.816 Spondylosis without myelopathy or radiculopathy, lumbar region; M50.020 Cervical disc disorder with myelopathy, mid-cervical region, unspecified level; M50.90 Cervical disc disorder, unspecified, unspecified cervical region; M16.0 Bilateral primary osteoarthritis of hip | CPT/HCPCS: 99214 ==

== ENCOUNTER 2023-06-22 05:25 | Emergency (ER) | payer OTHER, SELFPAY ==
[2023-06-22 06:05] VITALS: BP 129/87; PULSE 72; RESP 18; TEMP 36.7; O2SAT 96; BMI 27.2
--- NOTE | 2023-06-22 06:17 | W.ED.FEMALGU ---
HPI - Female Genitourinary General: Chief complaint: Urogenital-Female Stated complaint: vaginal pain and burning Time Seen by Provider: 06/22/23 06:13 History of Present Illness: 68-year-old female presents emerged part with complaints of a swollen labia majora as well as bruising. She states she is not been raped or sexually assaulted. She states she is not known to fall on anything that would have caused her bruising and swelling to her labia majora. She states she has not had a vaginal discharge and she is not sexually active. She stated that at approximately 2200 last night she went out to walk her dog without difficulty when she returned she felt like she was slightly swollen from that area down there. On physical examination with the female economic development coordinator in the room it does appear that her labia majora does have some slight bruising to it she states that she has not been sexually active for many many years and does not understand how this bruising could have occurred. She is not having any difficulty with urination at present. And does not know how this bruising could have occurred. 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 Social History Smoking and tobacco/nicotine status: never used tobacco/nicotine Second hand smoke exposure: No Alcohol intake: never Substance/Drug Use: never Adopted: Yes Household members: spouse Marital status: Current occupational status: retired and disabled Physical Exam Const: COMMON NORMALS: no acute distress, patient oriented x3, healthy appearing and alert HENMT: COMMON NORMALS: normocephalic, atraumatic and Normal nasal mucous membranes and turbinates present HEAD & SCALP: normocephalic and atraumatic NOSE: Normal nasal mucous membranes and turbinates present Eye: COMMON NORMALS: Equal, round and reactive pupils present, EOMs intact bilaterally and normal visual jane by confrontation PUPIL: Yes Equal, round and reactive pupils present Neck/C-Spine: COMMON NORMALS: full ROM, supple and no meningeal signs Resp: COMMON NORMALS: normal respiratory effort, No retractions and clear to auscultation bilaterally AUSCULTATION: clear to auscultation bilaterally Cardio: COMMON NORMALS: regular rate, regular rhythm, S1 normal heart sound present and Peripheral pulses 2+ throughout RATE: regular rate RHYTHM: regular rhythm HEART SOUNDS: S1 normal heart sound present PERIPHERAL PULSES: Peripheral pulses 2+ throughout GI: COMMON NORMALS: Normal to inspection, nondistended, normoactive bowel sounds present, Soft to palpation and non-tender PALPATION: Yes Soft to palpation : EXTERNAL FEMALE EXAM: Yes externally tender, Yes external swelling, No laceration and Yes External ecchymosis (female) Neuro: COMMON NORMALS: patient oriented x3, moves all extremities and no sensory deficits noted SENSORIUM/ORIENTATION: Yes alert MENINGEAL SIGNS: Yes no meningeal signs Psych: COMMON NORMALS: mental status grossly normal and Normal thought process present THOUGHT PROCESS: Normal thought process present Skin: COMMON NORMALS: no rashes or lesions noted GENERAL SKIN EXAM: no rashes or lesions noted Course Vital Signs: Vital signs: Vital Signs Temperature 98.0 F 06/22/23 06:05 Pulse Rate 71 06/22/23 08:31 Respiratory Rate 16 06/22/23 08:31 Blood Pressure 147/96 06/22/23 08:31 Pulse Oximetry 95 06/22/23 08:31 Oxygen Delivery Me thod Room Air 06/22/23 08:31 MDM - Female Medical Decision Making Physical exam completed and documented, patient denies known sexual assault she denies known traumatic injury. I have discussed with the patient supportive measures to include intermittent ice packing as well as anti-inflammatories. I expressed the importance of follow-up with her WHEEL ASSEMBLER or primary care provider. Medical Records I reviewed the patient's medical records. Lab Data I reviewed the patient's lab results. Laboratory Results Urine Color Yellow (Yellow) 06/22/23 06:57 Urine Appearance Clear (CLEAR) 06/22/23 06:57 Urine pH 6 (5-7) 06/22/23 06:57 Ur Specific [place] 1.005 (1.005-1.030) 06/22/23 06:57 Urine Protein Neg (Negative) 06/22/23 06:57 Urine Glucose (UA) Norm (Normal) 06/22/23 06:57 Urine Ketones Negative (Negative) 06/22/23 06:57 Urine Blood Neg (Negative) 06/22/23 06:57 Urine Nitrate Negative (Negative) 06/22/23 06:57 Urine Bilirubin Neg (Negative) 06/22/23 06:57 Urine Urobilinogen Norm mg/dL (Negative) 06/22/23 06:57 Ur Leukocyte Esterase Negative (Negative) 06/22/23 06:57 Urine RBC None /hpf (0-2) 06/22/23 06:57 Urine WBC 5-10 /hpf (0-5) H 06/22/23 06:57 Ur Squamous Epith Cells 5-10 /hpf (0-5) H 06/22/23 06:57 Amorphous Sediment Not Reportable 06/22/23 06:57 Urine Bacteria 1+ /hpf (NONE) H 06/22/23 06:57 No radiology studies performed this visit Discharge Plan Discharge Patient Disposition: Home Clinical Impression: Contusion of labia majora Condition: Stable Prescriptions: No Action cetirizine 10 mg tablet 10 mg PO DAILY PRN (Reason: Allergy Symptoms) hydrocodone-acetaminophen 5-325 mg tablet 1 tab PO BID PRN (Reason: pain) 30 Days Qty: 60 0RF Rx Instructions: fill on or after 07/08/21 methylprednisolone acetate [Depo-Medrol] 40 mg/mL suspension 40 mg intra-articular ONCE Qty: 1 0RF bupivacaine (PF) 0.25 % (2.5 mg/mL) solution 2.5 mg intra-articular ONCE Qty: 1 0RF calcitonin (salmon) 200 unit/actuation spray,non-aerosol 1 spray intranasal (ALT) ONCE calcium carbonate-vitamin D3 600 mg(1,500mg) -400 unit capsule 1 cap PO DAILY gabapentin 100 mg capsule 100 mg PO .eight times a day ketoconazole 2 % cream 1 applic TOPICAL BID PRN (Reason: Pain) cyclobenzaprine 10 mg tablet 10 mg PO BID PRN (Reason: Muscle Spasm) trazodone 100 mg tablet 100 mg PO DAILY lisinopril 2.5 mg tablet 2.5 mg PO DAILY conjugated estrogens 0.625 mg tablet 0.625 mg PO DAILY hydrocodone-acetaminophen 5-325 mg tablet 1 tab PO BID PRN (Reason: pain) 30 Days Qty: 60 0RF Rx Instructions: may fill 30 days after previous refill. aspirin [Adult Low Dose Aspirin] 81 mg tablet,delayed release (DR/EC) 81 mg PO DAILY dexamethasone sodium phosphate 4 mg/mL solution 8 mg intra-articular ONCE Qty: 2 0RF estradiol 1 mg tablet 1 mg PO DAILY Rx Instructions: off 1 week; repeat cycle Discharge Orders: Discharge ED (Routine); Ordered 06/22/23 Ordered By: Apolinar Dela Cruz Referrals: Ledy Dillard FNP [Primary Care Provider] - Discharge Diet: Advance as tolerated Discharge Activity: Resume usual activity Coding Level of Care Code ED Pens And Pencils Repairer for Ousmane Daugherty
[2023-06-22 07:54] LABS: Bilirubin Urine Neg (Negative); Blood Urine Neg (Negative); Glucose Urine UA Norm (Normal); Ketones Urine Negative (Negative); Leukocyte Esterase Urine Negative (Negative); Nitrate Urine Negative (Negative); Protein Urine Neg (Negative); Specific Gravity, Urine 1.005 (1.005-1.030); Urine Appearance Clear (CLEAR); Urine Color Yellow (Yellow); Urobilinogen Urine Norm (Negative); pH Urine 6 (5-7)
[2023-06-22 07:55] LABS: Bacteria Urine 1+ /hpf
[2023-06-22 07:58] LABS: Add Urine Culture? No
[2023-06-22 08:31] VITALS: BP 147/96; PULSE 71; RESP 16; O2SAT 95
[2023-06-22 08:56] VITALS: BP 147/96; PULSE 71; RESP 16; O2SAT 95
[2023-06-23 17:19] LABS: Chlamydia Trachomatis RNA TMA NOT DETECTED (NOT DETECTED); Neisseria Gonorrhoeae RNA, TMA NOT DETECTED (NOT DETECTED)
== END 2023-06-22 08:59 | disposition home or self-care (01) ==
PROVIDERS: Emergency Provider Internal Medicine; PCP Nurse Practitioner
DX: S30.23XA Contusion of vagina and vulva, initial encounter (principal); Z79.82 Long term (current) use of aspirin; X58.XXXA Exposure to other specified factors, initial encounter
CPT/HCPCS: 81001; 87491; 87591; 99283

== ENCOUNTER → 2023-12-11 09:33 | Outpatient (BNVA) | payer OTHER, SELFPAY | PROVIDERS: PCP Nurse Practitioner; Visit Provider Anesthesiology Pain Medicine | DX: G89.29 Other chronic pain (principal); M47.816 Spondylosis without myelopathy or radiculopathy, lumbar region; M16.11 Unilateral primary osteoarthritis, right hip; M50.020 Cervical disc disorder with myelopathy, mid-cervical region, unspecified level; M50.90 Cervical disc disorder, unspecified, unspecified cervical region | CPT/HCPCS: 72040; 99214 ==

== ENCOUNTER → 2024-01-09 08:33 | Outpatient (BNVA) | payer OTHER, SELFPAY | PROVIDERS: PCP Nurse Practitioner; Visit Provider Anesthesiology Pain Medicine | DX: G89.29 Other chronic pain; M47.816 Spondylosis without myelopathy or radiculopathy, lumbar region; M50.020 Cervical disc disorder with myelopathy, mid-cervical region, unspecified level; M50.90 Cervical disc disorder, unspecified, unspecified cervical region; M16.0 Bilateral primary osteoarthritis of hip | CPT/HCPCS: 99214 ==

== ENCOUNTER → 2024-02-06 08:57 | Outpatient (BNVA) | payer OTHER, SELFPAY | PROVIDERS: PCP Nurse Practitioner; Visit Provider Anesthesiology Pain Medicine | DX: G89.29 Other chronic pain; M47.816 Spondylosis without myelopathy or radiculopathy, lumbar region; M50.020 Cervical disc disorder with myelopathy, mid-cervical region, unspecified level; M50.90 Cervical disc disorder, unspecified, unspecified cervical region; M16.0 Bilateral primary osteoarthritis of hip | CPT/HCPCS: 99214 ==

== ENCOUNTER 2024-04-21 12:38 | Outpatient (CLI) | payer OTHER, SELFPAY ==
--- NOTE | 2024-04-21 12:47 | MM_ITS ---
WS: [id number] VIEWS: MLO and CC views both breasts. 3D digital tomosynthesis is also included in this exam. Comparison made with prior exam of 06/01/2009, 05/15/2011, 06/19/2013, 12/29/2014, 08/05/2017, 09/18/2018, 02/01/2021, 01/11/2022, 04/02/2023, 01/19/2020,. Findings: There was no sign of mass, architectural distortion or suspicious calcification in either breast. The breasts are heterogeneously dense which may obscure small masses MM/[place] [id number] Impression: BI-RADS: 2-Benign finding. FOLLOW-UP: 1 Year Follow-up This mammogram was also analyzed by the Computer Aided Detection System R2 Imag e Evening Sitter.
== END 2024-04-21 12:39 | disposition home or self-care (01) ==
LOC: RAD 12:39
PROVIDERS: PCP Nurse Practitioner; Visit Provider Nurse Practitioner
DX: Z12.31 Encounter for screening mammogram for malignant neoplasm of breast (principal)
CPT/HCPCS: 77063; 77067

== ENCOUNTER 2024-06-01 14:44 | Outpatient (CLI) | payer OTHER, SELFPAY ==
--- NOTE | 2024-06-01 14:52 | XR_ITS ---
WS: [id number] DEXA (DUAL ENERGY X-RAY ABSORPTIOMETRY) Bone mineral density was performed using a [employer] machine. HISTORY: SCREENING COMPARISON: None available. Lumbar spine BMD (L1-L4): 1.115 g/cm2 T score: -0.5 Z score: 0.7 Total hip BMD: Left: 0.986 g/cm2. T score: -0.2 Z score: 0.9 Right: 0.985 g/cm2. T score: -0.2 Z score: 0.9 10 year probability of a major osteoporotic fracture is 7.5%. XR/XR DEXA axial skeleton* [id number] IMPRESSION: NORMAL BONE MINERAL DENSITY based upon the WHO classification for females.
== END 2024-06-01 14:45 | disposition home or self-care (01) ==
LOC: RAD 14:45
PROVIDERS: PCP Nurse Practitioner; Visit Provider Nurse Practitioner
DX: Z78.0 Asymptomatic menopausal state (principal)
CPT/HCPCS: 77080

== ENCOUNTER 2024-08-20 10:26 | Emergency (ER) | payer OTHER, SELFPAY ==
[2024-08-20 10:29] VITALS: BP 174/118; PULSE 114; RESP 18; TEMP 36.9; O2SAT 98; BMI 24.5
--- NOTE | 2024-08-20 10:34 | ECG_ITS ---
[facility] 2024-[facility]20 Pat Name: Guadalupe Garrett Department: Room: Gender: Female Hi Lo Driver: : 1955 Requested By: Deyvi Kebede Order Number: [id number] Jania MD: All Jones M.D. Measurements Intervals [place] Rate: 102 P: 85 CO: 159 QRS: 105 QRSD: 91 T: 78 QT: 339 QTc: 443 Interpretive Statements SINUS TACHYCARDIA POSSIBLE LEFT ATRIAL ENLARGEMENT [-0.1mV P-WAVE IN V1/V2] INDETERMINATE AXIS INCOMPLETE RIGHT BUNDLE BRANCH BLOCK [90+ ms QRS DURATION, TERMINAL R IN V1/V2, 40+ ms S IN I/aVL/V4/V5/V6] Compared to ECG 11/17/2022 20:44:42 Indeterminate axis now present Incomplete right bundle-branch block now present Electronically Signed On 08-21-2024 18:34:58 KNOCKOUT MACHINE OPERATOR by All Jones M.D. [id number]
--- NOTE | 2024-08-20 10:34 | CT_ITS ---
WS: [id number] CT HEAD NONCONTRAST HISTORY: blurry vision TECHNIQUE: Contiguous axial imaging performed through the brain. Bone and soft tissue windows. Sagitt al and coronal reformats reviewed. All CT scans at [facility] use at least one of these dose optimization techniques: automated exposure control; mA and/or kV adjustment per patient size (includ es targeted exams where dose is matched to clinical indication); or iterative reconstruction. DLP: 1030.93 mGy.cm COMPARISON: 11/18/2022 No acute intracranial hemorrhage, midline shift or mass effect. Moderate symmetric atrophy and small vessel disease. No large infarct. Ventricles: Normal size with no hydrocephalus. No inferior displacement of the cerebellar tonsils. Paranasal sinuses: As visualized are clear. Mastoid air cells: Well pneumatized. Calvarium and scalp: Skull is intact with no soft tissue edema or swelling. CT/CT head wo con* [id number] IMPRESSION: 1. No acute intracranial hemorrhage or edema. 2. Moderate symmetric atrophy and small vessel disease.
--- NOTE | 2024-08-20 10:37 | W.ED.EYEPROB ---
HPI - Eye Problem General: Chief complaint: Eye Problems Stated complaint: eye issue Time Seen by Provider: 08/20/24 10:29 Source: patient Mode of arrival: ambulatory Limitations: no limitations History of Present Illness: 69-year-old female states she has had chronic eye issues she does see Dr. Flores she states she chronically has these floaters she sees in her eyes she states that last night she had a 30-minute period where they appeared black states that since then her vision has been completely back to normal states she is just concerned over this she denies any actual blurred vision or visual deficits or states she had had black floaters. Denies any headache denies any fevers. Associated symptoms: Denies fever(s), headache(s), nausea, neck pain or vomiting Related Data Home Medications Medication Instructions Recorded Confirmed calcitonin (salmon) 200 1 spray intranasal (ALT) ONCE 08/20/19 07/13/24 unit/actuation nasal spray calcium 600 mg (as 1 cap PO DAILY 08/20/19 07/13/24 carbonate)-vitamin D3 10 mcg (400 unit) capsule gabapentin 100 mg capsule 100 mg PO .eight times a day 08/20/19 07/13/24 cyclobenzaprine 10 mg tablet 10 mg PO BID PRN Muscle Spasm 08/28/19 07/13/24 ketoconazole 2 % topical cream 1 applic topical BID PRN Pain 08/28/19 07/13/24 cetirizine 10 mg tablet 10 mg PO DAILY PRN Allergy Symptoms 05/05/20 07/13/24 trazodone 100 mg tablet 100 mg PO DAILY 01/04/21 07/13/24 lisinopril 2.5 mg tablet 2.5 mg PO DAILY 11/29/21 07/13/24 estradiol 1 mg tablet 1 mg PO DAILY 10/08/22 07/13/24 multivitamin PO DAILY 07/12/23 07/13/24 omega 1-blr-qku-fish oil 60 mg-90 1 cap PO DAILY 07/12/23 07/13/24 mg-500 mg capsule (Fish Oil) turmeric 100 mg-elida 150 cap PO DAILY 07/12/23 07/13/24 mg-olive 50 mg-oreg 150 mg-capryl capsule Previous Rx's Medication Instructions Recorded clobetasol 0.05 % topical ointment 1 applic topical .once a week #60 07/12/23 grams estradiol 0.01% (0.1 mg/gram) 1 g vaginal .twice a week vaginal 07/12/23 vaginal cream atrophy #42.5 grams Allergies Allergy/AdvReac Type Severity Reaction Status Date / Time sulfamerazine Allergy Severe ADR-Confusi Verified 08/20/24 10:37 on Sulfa (Sulfonamide Allergy ALGY-Rash Verified 08/20/24 10:37 Antibiotics) Review of Systems Const: Denies: fever(s), chills, body aches or change in appetite Eyes: Reports: blurry vision; Denies: eye discomfort ENMT: Denies: throat pain or dental pain Card: Denies: chest pain Resp: Denies: dyspnea GI: Denies: abdominal pain, nausea, vomiting or diarrhea Musc: Denies: neck pain or back pain Skin/Breast: Denies: rash Neuro: Denies: headache(s) PFSH ED PFSH: Medical History Elevated transaminase level Colon polyp Lichen sclerosus of vulva Spondylolisthesis of cervical region Cervical disc disorder with myelopathy of mid-cervical region PTSD (post-traumatic stress disorder) Cervical disc disease Encounter for long-term use of opiate analgesic 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 Social History Smoking and tobacco/nicotine status: current every day tobacco/nicotine user Second hand smoke exposure: No Alcohol intake: never Substance/Drug Use: never Adopted: Yes Household members: spouse Marital status: Current occupational status: retired and disabled Physical Exam Const: COMMON NORMALS: no acute distress, patient oriented x3 and healthy appearing HENMT: COMMON NORMALS: normocephalic and atraumatic HEAD & SCALP: normocephalic and atraumatic Eye: COMMON NORMALS: Equal, round and reactive pupils present, EOMs intact bilaterally, conjunctivae normal and fundi normal bilaterally GENERAL EYE: appearance normal, both eyes and all related structures and normal light reflex CONJUNCTIVA: Yes conjunctivae normal PUPIL: Yes Equal, round and reactive pupils present DIRECT OPHTHALMOSCOPY: Yes normal light reflex and Yes fundi normal bilaterally Neck/C-Spine: COMMON NORMALS: full ROM and supple Chest: COMMONS NORMALS: normal inspection of the chest Resp: COMMON NORMALS: normal respiratory effort Cardio: COMMON NORMALS: regular rhythm and No murmurs present (Cardio) RATE: tachycardic RHYTHM: regular rhythm Extremity: COMMON NORMALS: normal to inspection and full ROM Neuro: COMMON NORMALS: patient oriented x3, moves all extremities and no focal motor deficits CRANIAL NERVES: Yes CN normal except as noted SPEECH: speech normal MOTOR EXAM: 5/5 motor strength present throughout Psych: COMMON NORMALS: mental status grossly normal, Normal thought process present and cooperative THOUGHT PROCESS: Normal thought process present Skin: COMMON NORMALS: no rashes or lesions noted and no wounds GENERAL SKIN EXAM: no rashes or lesions noted Course Vital Signs: Vital signs: Vital Signs Temperature 98.5 F 08/20/24 10:29 Pulse Rate 101 H 08/20/24 11:11 Respiratory Rate 18 08/20/24 10:29 Blood Pressure 174/118 08/20/24 10:29 Pulse Oximetry 96 08/20/24 11:11 Oxygen Delivery Me thod Room Air 08/20/24 11:11 MDM - Eye Problem Medical Decision Making Patient presents here with complaint of change in her vision last night nonspecific seeing black floaters and vision is returned to normal her visual acuity here is normal no complaints today head CT is normal eye exams normal no signs of retinal detachment no signs of stroke she is to follow-up with her drawing in machine tender return if worsening she understands agrees to plan. Medical Records I reviewed the patient's medical records. Lab Data I reviewed the patient's lab results. Radiology Impressions Head CT 08/20/24 10:34 IMPRESSION: 1. No acute intracranial hemorrhage or edema. 2. Moderate symmetric atrophy and small vessel disease. All radiology interpretation(s) finalized by discharge EKG Data EKG 1: I personally reviewed and interpreted this EKG as follows: EKG interpretation date: 08/20/24 EKG interpretation time: 10:37 Interpretation: sinus tach hr [address] elevation qrs 91 [id number] Discharge Plan Discharge Patient Disposition: Home Clinical Impression: Visual changes Condition: Stable Prescriptions: No Action cetirizine 10 mg tablet 10 mg PO DAILY PRN (Reason: Allergy Symptoms) methylprednisolone acetate [Depo-Medrol] 40 mg/mL suspension 40 mg intra-articular ONCE Qty: 1 0RF bupivacaine (PF) 0.25 % (2.5 mg/mL) solution 2.5 mg intra-articular ONCE Qty: 1 0RF calcitonin (salmon) 200 unit/actuation spray,non-aerosol 1 spray intranasal (ALT) ONCE calcium carbonate-vitamin D3 600 mg(1,500mg) -400 unit capsule 1 cap PO DAILY gabapentin 100 mg capsule 100 mg PO .eight times a day ketoconazole 2 % cream 1 applic TOPICAL BID PRN (Reason: Pain) cyclobenzaprine 10 mg tablet 10 mg PO BID PRN (Reason: Muscle Spasm) trazodone 100 mg tablet 100 mg PO DAILY lisinopril 2.5 mg tablet 2.5 mg PO DAILY multivitamin PO DAILY omega 9-qqg-nwz-fish oil [Fish Oil] 60-90-500 mg capsule 1 cap PO DAILY fltwwmop-uyng-wmxgp-oreg-capry 100 mg-150 mg- 50 mg-150 mg capsule PO DAILY estradiol 0.01 % (0.1 mg/gram) cream 1 g vaginal .twice a week Qty: 42.5 3RF Rx Instructions: apply twice a week clobetasol 0.05 % ointment 1 applic topical .once a week Qty: 60 3RF Rx Instructions: Once a week dexamethasone sodium phosphate 4 mg/mL solution 8 mg intra-articular ONCE Qty: 2 0RF estradiol 1 mg tablet 1 mg PO DAILY Rx Instructions: off 1 week; repeat cycle Discharge Orders: Discharge ED (Routine); Ordered 08/20/24 Ordered By: Deyvi Kebede Referrals: Tayo Flores [Physician] - 4-7 days Ledy Dillard FNP [Primary Care Provider] - Discharge Diet: Advance as tolerated Discharge Activity: Resume usual activity Patient Instructions: Vision Problems Coding Level of Care Code ED Advanced Practice Registered Nurse for Ousmane Daugherty
--- NOTE | 2024-08-20 11:06 | PC.NURSE ---
Visual Acuity test: (pt wearing normal glasses) L eye: 20/50 R eye: 20/50 Both: 20/50
[2024-08-20 11:11] VITALS: PULSE 101; O2SAT 96
[2024-08-20 11:28] VITALS: BP 108/82; PULSE 91; O2SAT 93
== END 2024-08-20 11:29 | disposition home or self-care (01) ==
PROVIDERS: Emergency Provider Emergency Medicine; PCP Nurse Practitioner
DX: H54.7 Unspecified visual loss (principal); Z72.0 Tobacco use
CPT/HCPCS: 70450; 93005; 99284

== ENCOUNTER → 2024-09-15 08:47 | Outpatient (BNVA) | payer OTHER, SELFPAY | PROVIDERS: PCP Nurse Practitioner; Visit Provider Anesthesiology Pain Medicine | DX: M47.816 Spondylosis without myelopathy or radiculopathy, lumbar region (principal); G89.29 Other chronic pain; M25.559 Pain in unspecified hip; M50.90 Cervical disc disorder, unspecified, unspecified cervical region | CPT/HCPCS: 72110; 73522; 99214 ==

== ENCOUNTER → 2024-10-05 09:31 | Outpatient (BNVA) | payer OTHER, SELFPAY | PROVIDERS: PCP Nurse Practitioner; Visit Provider Anesthesiology Pain Medicine | DX: M47.26 Other spondylosis with radiculopathy, lumbar region (principal); M50.020 Cervical disc disorder with myelopathy, mid-cervical region, unspecified level; G89.29 Other chronic pain; M25.559 Pain in unspecified hip | CPT/HCPCS: 99214 ==

== ENCOUNTER 2024-10-19 09:50 | Outpatient (CLI) | payer OTHER, SELFPAY ==
--- NOTE | 2024-10-19 10:15 | MR_ITS ---
WS: [id number] MRI LUMBAR SPINE NONCONTRAST HISTORY: M54.16 - Radiculopathy, lumbar region COMPARISON: None available. TECHNIQUE: Sagittal and axial multisequence imaging is submitted. Cervical disc osteophyte disease with mild mild encroachment upon the ventral cervical cord at C4-5, C5-6 and C6-7. Normal lumbar alignment with no compression fractures or marrow edema. Degenerative disc disease is mild and most significant at L4-5. Very small amount of marrow edema along the L4 and L5 endplates. No fracture. Conus terminates normally at L1-2 disc level. L1-L2: Normal. L2-L3: Bilateral facet joint arthritis. No stenosis. L3-L4: Diffuse annular disc bulging with ligamentum flavum and facet arthritis. Fluid in the facet joints. Disc encroachment upon the subarticular recesses, RIGHT greater than LEFT. Mild bilateral foraminal stenosis. L4-L5: Moderate annular disc bulge with a LEFT foraminal disc protrusion disc encroaches upon the ventral thecal sac effacing CSF. Greater encroachment and contact with displacement upon the traversing LEFT L5 nerve root. Mild central, bilateral subarticular recess and RIGHT foraminal stenosis. Moderate LEFT foraminal stenosis. L5-S1: Mild facet arthritis. No stenosis. Paravertebral soft tissues are normal. MR/MR lumbar spine wo con* [id number] IMPRESSION: 1. Moderate degenerative disc disease at L4-5 with marrow endplate edema. 2. L4-5: Diffuse disc bulging with a LEFT foraminal disc protrusion. Mild cent ral, bilateral subarticular recess and RIGHT foraminal stenosis. Moderate LEFT foraminal stenosis. Slightly greater contact by disc disease on the traversing LEFT L5 nerve root. 3. Mild bilateral foraminal stenosis at L4-5.
== END 2024-10-19 09:51 | disposition home or self-care (01) ==
PROVIDERS: PCP Nurse Practitioner; Visit Provider Nurse Practitioner Family
DX: M54.16 Radiculopathy, lumbar region (principal); M51.369 Other intervertebral disc degeneration, lumbar region without mention of lumbar back pain or lower extremity pain; M48.061 Spinal stenosis, lumbar region without neurogenic claudication; M25.78 Osteophyte, vertebrae; M47.896 Other spondylosis, lumbar region; R93.7 Abnormal findings on diagnostic imaging of other parts of musculoskeletal system; M47.897 Other spondylosis, lumbosacral region
CPT/HCPCS: 72148

== ENCOUNTER → 2024-10-21 10:53 | Outpatient (BNVA) | payer OTHER, SELFPAY | PROVIDERS: PCP Nurse Practitioner; Visit Provider Anesthesiology Pain Medicine | DX: M54.16 Radiculopathy, lumbar region (principal) | CPT/HCPCS: 64493; 64494; 64495; J1010; J3490 ==

== ENCOUNTER → 2024-11-17 08:27 | Outpatient (BNVA) | payer OTHER, SELFPAY | PROVIDERS: PCP Nurse Practitioner; Visit Provider Anesthesiology Pain Medicine | DX: M54.16 Radiculopathy, lumbar region (principal); M54.2 Cervicalgia; M54.9 Dorsalgia, unspecified; G89.29 Other chronic pain; M47.816 Spondylosis without myelopathy or radiculopathy, lumbar region; M25.559 Pain in unspecified hip | CPT/HCPCS: 99214 ==

== ENCOUNTER → 2024-11-25 12:41 | Outpatient (BNVA) | payer OTHER, SELFPAY | PROVIDERS: PCP Nurse Practitioner; Visit Provider Anesthesiology Pain Medicine | DX: M54.2 Cervicalgia (principal); M47.812 Spondylosis without myelopathy or radiculopathy, cervical region | CPT/HCPCS: 62321; J1010; J3490; J9999 ==

== ENCOUNTER → 2024-12-07 11:02 | Outpatient (BNVA) | payer OTHER, SELFPAY | PROVIDERS: PCP Nurse Practitioner; Visit Provider Anesthesiology Pain Medicine | DX: M54.2 Cervicalgia (principal); M54.16 Radiculopathy, lumbar region; M54.9 Dorsalgia, unspecified; G89.29 Other chronic pain; M47.816 Spondylosis without myelopathy or radiculopathy, lumbar region; Z87.891 Personal history of nicotine dependence; M25.552 Pain in left hip; M25.551 Pain in right hip | CPT/HCPCS: 99213 ==

== ENCOUNTER 2025-02-15 07:08 | Emergency (ER) | payer OTHER, SELFPAY ==
[2025-02-15 07:27] VITALS: PULSE 88; RESP 16; TEMP 36.7; O2SAT 97; BMI 27.6
[2025-02-15 07:32] VITALS: BP 152/81
--- NOTE | 2025-02-15 07:39 | W.ED.EYEPROB ---
HPI - Eye Problem General: Chief complaint: Eye Problems Stated complaint: Right eye problems Time Seen by Provider: 02/15/25 07:19 History of Present Illness: 69-year-old female presents emergency room with mild swelling to the right lower eyelid. Symptoms began overnight does not affect vision. Patient awake and alert is complaining of mild headache Associated symptoms: Denies fever(s) Related Data Home Medications ?Medication ?Instructions ?Recorded ?Confirmed calcitonin (salmon) 200 1 spray intranasal (ALT) ONCE 08/20/19 02/11/25 unit/actuation nasal spray calcium 600 mg (as 1 cap PO DAILY 08/20/19 02/11/25 carbonate)-vitamin D3 10 mcg (400 unit) capsule gabapentin 100 mg capsule 100 mg PO .eight times a day 08/20/19 02/11/25 cyclobenzaprine 10 mg tablet 10 mg PO BID PRN Muscle Spasm 08/28/19 02/11/25 ketoconazole 2 % topical cream 1 applic topical BID PRN Pain 08/28/19 02/11/25 cetirizine 10 mg tablet 10 mg PO DAILY PRN Allergy Symptoms 05/05/20 02/11/25 trazodone 100 mg tablet 100 mg PO DAILY 01/04/21 02/11/25 lisinopril 2.5 mg tablet 2.5 mg PO DAILY 11/29/21 02/11/25 estradiol 1 mg tablet 1 mg PO DAILY 10/08/22 02/11/25 omega 4-cah-hri-fish oil 60 mg-90 1 cap PO DAILY 07/12/23 02/11/25 mg-500 mg capsule (Fish Oil) nzqhcyolstxt-nbtuxvbz-elkur acid 1 cap PO DAILY 08/20/24 02/11/25 400 mcg-vitamin K 80 mcg capsule (Multi For Her 50 Plus) amlodipine 2.5 mg tablet mg PO 10/05/24 02/11/25 Previous Rx's ?Medication ?Instructions ?Recorded clobetasol 0.05 % topical ointment 1 applic topical .once a week #60 07/12/23 grams esterified 1 tab PO DAILY #30 tabs 02/11/25 estrogens-methyltestosterone 0.625 mg-1.25 mg tablet (Estratest H.S.) estradiol 0.01% (0.1 mg/gram) 1 g vaginal .twice a week vaginal 02/11/25 vaginal cream atrophy #42.5 grams cephalexin 500 mg capsule 500 mg PO TID #15 caps 02/15/25 tobramycin 0.3 % eye drops 3 drp otic (ear) TID 1 week #5 mL 02/15/25 Allergies Allergy/AdvReac Type Severity Reaction Status Date / Time sulfamerazine Allergy Severe ADR-Confusi Verified 02/11/25 09:08 on Sulfa (Sulfonamide Allergy ALGY-Rash Verified 02/11/25 09:08 Antibiotics) Review of Systems Const: Denies: fever(s) or chills PFS ED PFSH: Medical History Elevated transaminase level Colon polyp Lichen sclerosus of vulva Spondylolisthesis of cervical region Cervical disc disorder with myelopathy of mid-cervical region PTSD (post-traumatic stress disorder) Cervical disc disease Encounter for long-term use of opiate analgesic 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 Social History Smoking and tobacco/nicotine status: former use of tobacco/nicotine (quit 18 years ago) Second hand smoke exposure: No Alcohol intake: never Substance/Drug Use: never Adopted: Yes Household members: spouse Marital status: Current occupational status: retired and disabled Physical Exam Const: COMMON NORMALS: no acute distress GENERAL APPEARANCE: cooperative and comfortable ORIENTATION/CONSCIOUSNESS: Yes awake, Yes oriented to person, Yes oriented to place and Yes oriented to time HENMT: COMMON NORMALS: normocephalic, atraumatic and hearing grossly normal bilaterally HEAD & SCALP: normocephalic and atraumatic OTHER: Examination of the right eye?mild swelling along the tarsal plate of the lower lid. Little bit of fullness of the to the right lower eyelid. Mild scleral injection very minimal pupil equal and reactive to light extraocular is intact no purulent drainage no chemosis Resp: COMMON NORMALS: normal respiratory effort and No use of accessory muscles Neuro: SENSORIUM/ORIENTATION: Yes oriented to person, Yes oriented to place and Yes oriented to time Course Vital Signs: Vital signs: Vital Signs Temperature 98.0 F 02/15/25 07:27 Pulse Rate 88 02/15/25 07:27 Respiratory Rate 16 02/15/25 07:27 Blood Pressure 152/81 02/15/25 07:32 Pulse Oximetry 97 02/15/25 07:27 Oxygen Delivery Me thod Room Air 02/15/25 07:27 MDM - Eye Problem Medical Decision Making Topical and oral antibiotics follow-up as needed No radiology studies performed this visit Discharge Plan Discharge Patient Disposition: Home Clinical Impression: Blepharitis of eyelid of right eye Condition: Stable Prescriptions: New cephalexin 500 mg capsule 500 mg PO TID Qty: 15 0RF tobramycin 0.3 % drops 3 drp otic (ear) TID 7 Days Qty: 5 0RF No Action cetirizine 10 mg tablet 10 mg PO DAILY PRN (Reason: Allergy Symptoms) calcitonin (salmon) 200 unit/actuation spray,non-aerosol 1 spray intranasal (ALT) ONCE calcium carbonate-vitamin D3 600 mg(1,500mg) -400 unit capsule 1 cap PO DAILY gabapentin 100 mg capsule 100 mg PO .eight times a day ketoconazole 2 % cream 1 applic TOPICAL BID PRN (Reason: Pain) cyclobenzaprine 10 mg tablet 10 mg PO BID PRN (Reason: Muscle Spasm) trazodone 100 mg tablet 100 mg PO DAILY lisinopril 2.5 mg tablet 2.5 mg PO DAILY omega 1-pmd-fis-fish oil [Fish Oil] 60-90-500 mg capsule 1 cap PO DAILY clobetasol 0.05 % ointment 1 applic topical .once a week Qty: 60 3RF Rx Instructions: Once a week estrogens-methyltestosterone [Estratest H.S.] 0.625-1.25 mg tablet 1 tab PO DAILY Qty: 30 3RF estradiol 0.01 % (0.1 mg/gram) cream 1 g vaginal .twice a week Qty: 42.5 3RF Rx Instructions: apply twice a week estradiol 1 mg tablet 1 mg PO DAILY Rx Instructions: off 1 week; repeat cycle amlodipine 2.5 mg tablet PO Multi For Her 50 Plus 400-80 mcg Capsule 1 cap PO DAILY Discharge Orders: Discharge ED (Routine); Ordered 02/15/25 Ordered By: Bharath Rosenbaum Referrals: Ledy Dillard FNP [Primary Care Provider, Nurse Practitioner] Discharge Diet: Usual diet Discharge Activity: Resume usual activity Patient Instructions: Blepharitis (ED), Opioid Safety, Pain Management Activity Restrictions/Additional Instructions: Thank you for choosing [facility] for your healthcare needs today. It is very important that you follow up as instructed or that you return to the Emergency Department should you have concerns or if your condition changes or worsens in any way. Print Language: Mauritian Coding Level of Care Code ED Cardiac Rehabilitation Program Director for Ousmane Daugherty
== END 2025-02-15 07:45 | disposition home or self-care (01) ==
PROVIDERS: Emergency Provider Family Medicine; PCP Nurse Practitioner
DX: H01.002 Unspecified blepharitis right lower eyelid (principal); Z87.891 Personal history of nicotine dependence
CPT/HCPCS: 72110; 99214; 99283

== ENCOUNTER → 2025-03-01 08:14 | Outpatient (BNVA) | payer OTHER, SELFPAY | PROVIDERS: PCP Nurse Practitioner; Visit Provider Anesthesiology Pain Medicine | DX: M54.16 Radiculopathy, lumbar region (principal); M54.2 Cervicalgia; M54.9 Dorsalgia, unspecified; G89.29 Other chronic pain; M47.816 Spondylosis without myelopathy or radiculopathy, lumbar region; M25.559 Pain in unspecified hip; M54.50 Low back pain, unspecified | CPT/HCPCS: 99214 ==

== ENCOUNTER → 2025-03-10 13:29 | Outpatient (BNVA) | payer OTHER, SELFPAY | PROVIDERS: PCP Nurse Practitioner; Visit Provider Anesthesiology Pain Medicine | DX: M54.16 Radiculopathy, lumbar region (principal) | CPT/HCPCS: 64483; 64484; J1100; J3490; J9999 ==

== ENCOUNTER → 2025-03-23 08:19 | Outpatient (BNVA) | payer OTHER, SELFPAY | PROVIDERS: PCP Nurse Practitioner; Visit Provider Anesthesiology Pain Medicine | DX: M54.16 Radiculopathy, lumbar region (principal); M54.2 Cervicalgia; M54.9 Dorsalgia, unspecified; G89.29 Other chronic pain; M47.816 Spondylosis without myelopathy or radiculopathy, lumbar region; M25.559 Pain in unspecified hip; M54.50 Low back pain, unspecified | CPT/HCPCS: 99214 ==

== ENCOUNTER 2025-04-20 08:41 | Outpatient (CLI) | payer OTHER, SELFPAY ==
--- NOTE | 2025-04-20 08:46 | MM_ITS ---
WS: [id number] BILATERAL 3D TOMOSYNTHESIS DIGITAL SCREENING MAMMOGRAPHY WITH CAD CLINICAL INFORMATION: SCREENING HISTORY: Screening mammogram. No current complaints. COMPARISON: 2023 TECHNIQUE: Bilateral CC and MLO views. FINDINGS: The breasts are composed of heterogeneous fibroglandular density tissue, which can limit the detection of small underlying mass lesions. No suspicious mass, asymmetry, calcifications, or architectural distortion. No evidence of malignancy. Innumerable punctate and lucent centered calcifications bilaterally. Vascular calcifications. Eggshell calcification anterior RIGHT breast MM/MM [facility] tomosynthesis [id number] IMPRESSION: DENSITY: The breasts are heterogeneously dense, which may obscure small masses. BI-RADS: 2 - Benign FOLLOW UP: 1 Year Follow-up Recommend return to annual screening mammography.
== END 2025-04-20 08:42 | disposition home or self-care (01) ==
LOC: RAD 08:42
PROVIDERS: PCP Nurse Practitioner; Visit Provider Obstetrics & Gynecology
DX: Z12.31 Encounter for screening mammogram for malignant neoplasm of breast (principal); R92.323 Mammographic fibroglandular density, bilateral breasts; R92.333 Mammographic heterogeneous density, bilateral breasts; R92.1 Mammographic calcification found on diagnostic imaging of breast
CPT/HCPCS: 77063; 77067

== ENCOUNTER → 2025-05-04 10:28 | Outpatient (BNVA) | payer OTHER, SELFPAY | PROVIDERS: PCP Nurse Practitioner; Visit Provider Anesthesiology Pain Medicine | DX: M54.16 Radiculopathy, lumbar region (principal); M54.2 Cervicalgia; M54.9 Dorsalgia, unspecified; G89.29 Other chronic pain; M47.816 Spondylosis without myelopathy or radiculopathy, lumbar region; M25.559 Pain in unspecified hip; M54.50 Low back pain, unspecified | CPT/HCPCS: 99214 ==

== ENCOUNTER → 2025-05-10 14:11 | Outpatient (BNVA) | payer OTHER, SELFPAY | PROVIDERS: PCP Nurse Practitioner; Visit Provider Anesthesiology Pain Medicine | DX: M79.18 Myalgia, other site (principal); M54.16 Radiculopathy, lumbar region; M54.2 Cervicalgia; M54.9 Dorsalgia, unspecified; G89.29 Other chronic pain; M47.816 Spondylosis without myelopathy or radiculopathy, lumbar region; M25.559 Pain in unspecified hip; M54.50 Low back pain, unspecified | CPT/HCPCS: 20553; 99214; J1010; J3490 ==

== ENCOUNTER 2025-05-26 07:21 | Outpatient (RCR) | payer OTHER, SELFPAY | END 2025-06-25 23:59 | disposition home or self-care (01) | LOC: SPT 07:21 | PROVIDERS: Visit Provider Anesthesiology Pain Medicine | DX: M54.16 Radiculopathy, lumbar region (principal) | CPT/HCPCS: 97110; 97161 ==

== ENCOUNTER 2025-06-15 13:28 | Outpatient (CLI) | payer OTHER, SELFPAY ==
--- NOTE | 2025-06-15 13:34 | XR_ITS ---
WS: [id number] SCREENING DEXA SCAN [facility] CLINICAL INFORMATION: SCREENING COMPARISON: 2023 FINDINGS: The L1-L4 bone mineral density measures 1.095 g/cm2. This corresponds to a T score score of -0.7 and Z score of 0.4. Left femoral neck bone mineral density measures 0.975 g/cm2. This corresponds to a T score of -0.3 and Z score of 0.8. Right femoral neck bone mineral density measures 0.998 g/cm2. This corresponds to a T score -0.1of and Z score of 1.0. Mean femoral neck bone mineral density measures 0.987 g/cm2. This corresponds to a T score of -0.2 and Z score of 0.9. XR/XR DEXA axial skeleton* [id number] IMPRESSION: Normal bone mineralization. Patient's FRAX calculated 10 year probability for major osteoporotic fracture i s 7.5% and osteoporotic hip fracture is 0.5%. Bone density lumbar spine decreased -1.8% Bone density femoral necks increased 0.2%
== END 2025-06-15 13:29 | disposition home or self-care (01) ==
LOC: RAD 13:29
PROVIDERS: PCP Nurse Practitioner; Visit Provider Nurse Practitioner
DX: Z13.820 Encounter for screening for osteoporosis (principal); Z78.0 Asymptomatic menopausal state
CPT/HCPCS: 77080

== ENCOUNTER 2025-06-26 05:00 | Outpatient (RCR) | payer OTHER, SELFPAY | END 2025-07-25 23:59 | disposition home or self-care (01) | LOC: SPT 05:00 | PROVIDERS: PCP Nurse Practitioner; Visit Provider Anesthesiology Pain Medicine | DX: M54.16 Radiculopathy, lumbar region (principal) | CPT/HCPCS: 97110 ==

== ENCOUNTER → 2025-07-14 09:26 | Outpatient (BNVA) | payer OTHER, SELFPAY | PROVIDERS: PCP Nurse Practitioner; Visit Provider Anesthesiology Pain Medicine | DX: M79.18 Myalgia, other site (principal); M47.816 Spondylosis without myelopathy or radiculopathy, lumbar region; M54.16 Radiculopathy, lumbar region; M54.2 Cervicalgia; G89.29 Other chronic pain; M25.559 Pain in unspecified hip | CPT/HCPCS: 20553; 99214; J1010; J3490 ==